=== PATIENT | male | born 1950 | race Caucasian/White ===

== ENCOUNTER 2022-01-21 20:56 | Emergency (ER) | payer MEDICARE, SELFPAY ==
[2022-01-21] MEDS ORDERED: SUCCINYLCHOLINE 20 MG/ML (10 ML) IV ONE (20:57)
[2022-01-21] MEDS ORDERED: RSI MEDICATION KIT IV ONE (21:05)
[2022-01-21] MEDS ORDERED: propofoL 1,000 MG/100 ML VIAL IV ONE (21:06)
[2022-01-21] MEDS ORDERED: METHYLPREDNISOLONE 125 MG INJ ONE (21:20)
[2022-01-21] MEDS ORDERED: ALBUTEROL 2.5 MG/3 ML NEB SOL ONE ×2 (21:20→21:21)
[2022-01-21] MEDS ORDERED: IPRATROPIUM BROM 0.5MG/2.5ML ONE (21:20)
[2022-01-21] MEDS ORDERED: Magnesium Sulfate 2gm IVPB 2 G/50 ML BAG IV ONE (21:20)
[2022-01-21 21:44] LABS: Absolute Lymphocytes (CBC) 7.7 K/uL (0.7-4.9); Hematocrit 43.3 % (39.6-49.0); Lymphocytes % 37.8 % (15.3-44.8); MPV 8.5 fL (7.6-11.3); RBC Red Blood Cell Count 4.68 M/uL (4.33-5.43)
[2022-01-21 21:59] LABS: Protime INR 0.85
[2022-01-21 22:01] LABS: Albumin 3.7 g/dL (3.4-5.0); Bilirubin Total 0.4 mg/dL (0.2-1.0); Potassium 4.9 mmol/L (3.5-5.1); Protein, Total 7.4 g/dL (6.4-8.2); Troponin High Sensitivity 48.8 pg/mL (<58.9)
[2022-01-21] MEDS ORDERED: MIDAZOLAM HCL 2 MG/2 ML INJ ONE ×2 (22:04→23:01)
[2022-01-21 23:10] LABS: Blood Morphology Comment NOT SEEN (NOT SEEN); Platelet Estimate ADEQ
--- NOTE | 2022-01-21 23:29 | RAD REPORT ---
EXAM DESCRIPTION: CT - Head Brain Wo Cont - 01/21/2022 11:21 pm CLINICAL HISTORY: altered mental status COMPARISON: No comparisons TECHNIQUE: All CT scans are performed using dose optimization technique as appropriate and may inclu de automated exposure control or mA/KV adjustment according to patient size. FINDINGS: No intracranial hemorrhage, hydrocephalus or extra-axial fluid collection.No areas of brai n edema or evidence of midline shift. The paranasal sinuses and mastoids are clear. The calvarium is intact. IMPRESSION: No acute intracranial abnormality.
[2022-01-21] MEDS ORDERED: CEFTRIAXONE 1000 MG/VIAL ONE (23:42)
[2022-01-21] MEDS ORDERED: AZITHROMYCIN 500 MG INJ IVPB ONE (23:44)
[2022-01-21] MEDS ORDERED: NA CHLORIDE 0.9% 250 ML ONE (23:44)
--- NOTE | 2022-01-21 23:55 | EDPHYS ---
Physician Documentation [facility] Name: Rodrigo Bustos Sr Age: 71 yrs Sex: Male : 1950 Arrival Date: 01/21/2022 Time: 21:01 Bed 15 Private MD: ED Physician Aroldo Yao HPI: 01/21 21:22 This 71 yrs old Male presents to ER via Unassigned with complaints of Shortness of ms3 breath, altered mental status. 21:22 Onset: The symptoms/episode began/occurred acutely. Duration: The symptoms are ms3 continuous, and are markedly worse than the original presentation. The patient's shortness of breath has no apparent modifying factors. 22:06 71-year-old male presents via [facility] for shortness of breath. EMS states on their ms3 arrival patient was tripoding and patient's mentation decreased during transport. EMS states patient has history of myocardial infarction and COPD. History of present illness limited by patient's mental status and no family or friends present.. ROS: 22:06 Unable to obtain ROS due to altered mental status. ms3 Exam: 21:03 ECG was reviewed by the Attending Physician. ms3 22:06 Constitutional: The patient appears in obvious distress, severely distressed, obviously ms3 ill, pale, Diaphoretic 22:06 Head/face: 22:06 Chest/axilla: Inspection: no acute changes, Palpation: is normal, no crepitus, no tenderness. 22:06 Cardiovascular: Rate: tachycardic, Rhythm: regular, Pulses: Pulses are 4+ in right radial artery and left radial artery. Heart sounds: normal, JVD: is noted bilaterally. 22:06 Neck: External neck: abrasion(s), cellulitis, crepitus, ecchymosis, JVD present, ms3 Trachea: is midline with no obvious abnormalities. 22:06 Respiratory: severe repiratory distress is noted, Respirations: labored breathing, that is severe, nasal flaring, prolonged exhalation, that is moderate, intercostal retractions, that is severe. 22:06 Abdomen/GI: Inspection: abdomen appears normal, Bowel sounds: normal, Palpation: soft. 22:06 Back: Exam negative for acute changes, ecchymosis injury. 22:06 Skin: Appearance: Color: pink, Temperature: normal temperature, Moisture: diaphoretic. 22:06 Neuro: Orientation: unable to test, the patient is comatose, Mentation: unable to follow commands, somnolent, Cerebellar function: unable to test, Motor: unable to test, Sensation: unable to test, GCS 6. Vital Signs: 20:55 BP 198 / 115; Pulse 138; Resp 19 A; Temp 97.5(R); Pulse Ox 99% on Non-rebreather mask; ag7 Weight 100 kg; Height 6 ft. 1 in. (185.42 cm); 21:23 BP 116 / 71; Pulse 79; Resp 17 A; Pulse Ox 100% on ETT vent; ag7 21:37 BP 85 / 72; Pulse 70; Resp 19 A; Pulse Ox 89% on ETT vent; ag7 21:40 BP 106 / 64 LA Supine (auto/reg); Pulse 77 MON; Resp 18 A; Pulse Ox 94% on ETT vent; ag7 21:54 BP 116 / 97; Pulse 66; Resp 22 A; Pulse Ox 100% on ETT vent; ag7 22:06 BP 98 / 56; Pulse 66; Resp 14 A; Pulse Ox 83% on ETT vent; ag7 22:21 BP 102 / 52; Pulse 64; Resp 22 A; Pulse Ox 100% on ETT vent; ag7 22:33 BP 121 / 60; Pulse 61; Resp 22 A; Pulse Ox 100% on ETT vent; ag7 22:48 BP 120 / 63; Pulse 59; Resp 22 A; Pulse Ox 100% on ETT vent; ag7 23:00 BP 121 / 64; Pulse 61; Resp 22 A; Pulse Ox 100% on ETT vent; ag7 23:21 BP 137 / 62; Pulse 65; Resp 21 A; Pulse Ox 100% on ETT vent; ag7 23:36 BP 128 / 76; Pulse 63; Resp 20 A; Pulse Ox 100% on ETT vent; ag7 01/22 00:00 BP 151 / 69; Pulse 68; Resp 20 A; Pulse Ox 100% on ETT vent; ag7 00:30 BP 138 / 70; Pulse 68; Resp 20 A; Pulse Ox 100% on ETT vent; ag7 01:00 BP 118 / 65; Pulse 66; Resp 20 A; Pulse Ox 100% on ETT vent; ag7 01:34 BP 119 / 63; Pulse 57; Resp 18 A; Pulse Ox 100% on ETT vent; ag7 01/21 20:55 Body Mass Index 29.09 (100.00 kg, 185.42 cm) ag7 MDM: 01/21 21:13 Patient medically screened. ms3 22:47 ED course: Patient CXR consistent with CHF exacerbation. Will give emperic antibiotics. ms3 No acute bacterial source of infection seen at this time.. 01/22 07:26 Differential diagnosis: asthma, Bronchitis CHF exacerbation, Chronic Obstructive ms3 Pulmonary Disease Myocardial Infarction pneumonia, pulmonary edema, Unstable Angina. Data reviewed: vital signs, nurses notes, lab test result(s), EKG, radiologic studies. Counseling: I had a detailed discussion with the patient and/or guardian regarding:. 01/21 21:20 Order name: Blood Culture Adult (2) ms3 01/21 21:20 Order name: CBC with Diff; Complete Time: 23:33 ms3 01/21 21:20 Order name: CMP; Complete Time: 22:14 ms3 01/21 21:20 Order name: Lactate; Complete Time: 22:14 ms3 01/21 21:20 Order name: Protime (+inr); Complete Time: 22:00 ms3 01/21 21:20 Order name: Ptt, Activated; Complete Time: 22:00 ms3 01/21 21:20 Order name: ABG; Complete Time: 01:00 ms3 01/21 21:20 Order name: Basic Metabolic Panel ms3 01/21 21:20 Order name: CBC with Diff ms3 01/21 21:20 Order name: NT PRO-BNP; Complete Time: 22:14 ms3 01/21 21:20 Order name: Troponin HS; Complete Time: 22:14 ms3 01/21 22:01 Order name: Manual Differential; Complete Time: 23:33 EDMS 01/21 21:20 Order name: Chest Single View XRAY ms3 01/21 21:20 Order name: EKG; Complete Time: 21:21 ms3 01/21 21:20 Order name: CT Head Brain wo Cont; Complete Time: 23:33 ms3 01/21 22:27 Order name: COVID-19 SARS RT PCR (Document "Date of Onset" if Symptomatic); Complete tw5 Time: 01:01/22 00:57 Order name: Lactate Sepsis 2 HR Follow-up; Complete Time: 01:00 EDMS 01/22 01:13 Order name: ABG ms3 01/21 21:20 Order name: Accucheck ms3 01/21 21:20 Order name: Cardiac monitoring ms3 01/21 21:20 Order name: EKG - Nurse/Tech ms3 01/21 21:20 Order name: IV Saline Lock - Large Bore ms3 01/21 21:20 Order name: Labs collected and sent ms3 01/21 21:20 Order name: O2 Per Protocol ms3 01/21 21:20 Order name: O2 Sat Monitoring ms3 01/21 21:20 Order name: Urine Dipstick-Ancillary (obtain specimen) ms3 01/21 21:20 Order name: IV Saline Lock ms3 01/21 22:50 Order name: Restraint:Non-Violent; Complete Time: 22:50 ms3 EC/14 21:03 Rate is 115 beats/min. Rhythm is regular. Left axis deviation noted. QRS interval is ms3 prolonged at 146 msec. Clinical impression: Abnormal EKG without significant change. Interpreted by me. Administered Medications: 21:09 Drug: Propofol 5 mcg/kg/min Route: IV; Rate: calculated rate; Site: right hand; ag7 21:10 Drug: Succinylcholine 100 mg Route: IVP; Site: right hand; ag7 21:40 Follow up: Response: No adverse reaction ag7 21:20 Drug: Albuterol - atroVENT (ipratropium) (3:1) (2.5 mg - 0.5 mg) 3 ml Route: Nebulizer; ag7 21:20 Drug: Magnesium Sulfate 2 grams Route: IVPB; Infused Over: 2 hrs; Site: left hand; ag7 22:20 Follow up: IV Status: Completed infusion; IV Intake: 50ml ag7 21:20 Drug: SOLU-Medrol (methylPrednisoLONE) 125 mg Route: IVP; Site: left hand; ag7 22:03 Drug: Midazolam 4 mg Route: IVP; Site: right antecubital; ag7 22:56 Drug: Midazolam 2 mg Route: IVP; Site: left wrist; tw5 23:30 Follow up: Response: No adverse reaction ag7 23:50 Drug: AZITHromycin 500 mg Route: IVPB; Infused Over: 1 hrs; Site: left hand; ag7 01/22 01:11 Follow up: IV Status: Completed infusion; IV Intake: 250ml ag7 01/21 23:56 Drug: Rocephin (cefTRIAXone) 1 grams Route: IV; Rate: calculated rate; Site: left hand; ag7 01/22 00:30 Follow up: Response: No adverse reaction ag7 00:04 Drug: Lasix (furosemide) 40 mg Route: IVP; Site: left hand; ag7 00:34 Follow up: Response: No adverse reaction ag7 Point of Care Testing: Blood Glucose: 01/21 20:55 Blood Glucose: 218 mg/dL; ag7 Ranges: Critical Glucose Levels:Adult <50 mg/dl or >400 mg/dl <40 mg/dl or >180 mg/dl Disposition: 01/22 07:26 Critical Care:. ms3 Disposition Summary: 01/21/22 23:54 Transfer Ordered Transfer Location: [facility] ms3 Reason: Higher level of care ms3 Condition: Critical ms3 Problem: new ms3 Symptoms: have improved ms3 Accepting Physician: .(01/22/22 02:25) ag7 Diagnosis - Acute respiratory failure ms3 - congestive heart failure ms3 - COPD exacerbation ms3 - Acidosis ms3 - Hypercapnea ms3 Forms: - Medication Reconciliation Form ms3 - SBAR form ms3 Critical care time excluding procedures: 07:26 Critical care time: Bedside Care: 50 minutes, Consultation: 10 minutes. Total time: 60 ms3 minutes Signatures: Dispatcher [employer] EDMS Winston Samuels, RIO HARDWARE ENGINEER-Lily1 Aroldo Yao DO DO ms3 Carol Zapata tw5 Merry Soni RN RN ag7 Corrections: (The following items were deleted from the chart) 02:25 01/21 23:54 . ms3 ag7
--- NOTE | 2022-01-21 23:55 | ER ---
Nurse's Notes [facility] Name: Rodrigo Bustos Sr Age: 71 yrs Sex: Male : 1950 Arrival Date: 01/21/2022 Time: 21:01 Bed 15 Private MD: Diagnosis: Acute respiratory failure;congestive heart failure;COPD exacerbation;Acidosis;Hypercapnea Presentation: 01/21 20:55 Chief complaint: EMS states: EMS report, called to patient home, patient unresponsive. ag7 Coronavirus screen: At this time, unable to obtain information related to travel outside the [place] Client presents with at least one sign or symptom that may indicate coronavirus-19. Standard/surgical mask placed on the client. Ebola Screen: Patient negative for fever greater than or equal to 101.5 degrees Fahrenheit, and additional compatible Ebola Virus Disease symptoms Patient denies exposure to infectious person. Initial Sepsis Screen: Does the patient meet any 2 criteria? RR > 20 per min. Temp <36.0*C (96.8*F)) or > 38.3*C (100.9*F). Altered Mental Status. HR > 90 bpm. Yes Does the patient have a suspected source of infection? Yes: Productive cough/pneumonia Other: rhonchi, wheezing bilateral. Risk Assessment: Do you want to hurt yourself or someone else? Unable to obtain. Onset of symptoms was January 21, 2022. Care prior to arrival: non rebreather. 20:55 Method Of Arrival: EMS: [facility] ag7 20:55 Acuity: YURI 1 ag7 Triage Assessment: 20:55 General: Appears distressed, Behavior is unresponsive. Neuro: Level of Consciousness is ag7 unresponsive. Cardiovascular: Heart tones S1 S2 present. Respiratory: Airway is compromised Trachea midline Respiratory effort is labored, Respiratory pattern is regular, symmetrical, Ventilator assessment: Breath sounds are coarse Breath sounds with rhonchi bilaterally. Breath sounds with wheezes bilaterally. Screenin/15 01:25 Fall Risk No fall in past 12 months (0 pts). No secondary diagnosis (0 pts). IV access ag7 (20 points). Ambulatory Aid- None/Bed Rest/Nurse Assist (0 pts). Gait- Weak (10 pts.). Mental Status- Overestimates/Forgets Limitations (15 pts.). Total Mccarthy Fall Scale indicates High Risk Score (45 or more points). Fall prevention measures have been instituted. Side Rails Up X 2 Placed Close to Nursing Station 1:1 Attendant Assigned Frequent Obs/Assessments Occuring. Assessment: 01/21 21:00 Reassessment: Lab draw with IV start to the right forearm. ag7 21:03 Reassessment: prep intubation 2108 Propofol 100 mg IVP 2116 continuous propofol 20 ag7 mcg/kg/min 2125 Propofol increased 25 mcg/kg/min RASS 2 2129 propofol bolus 10 mg/min 2132 Propofol increased 30 mcg/kg/min 2135 Propofol 10 mg/min bolus 2141 ABG 2202 Versed 2 mg IVP 2248 increased Propofol 35 mcg/kg/min. 21:05 General: see triage. ag7 01/22 02:03 Reassessment: Report called to Gertrude DELGADO [phone] [facility]. ag7 02:04 Reassessment: ventilator settings Peep 1.0, TV 380, RR 18, FI02 75%. ag7 02:15 Reassessment: No changes from previously documented assessment. ag7 02:16 Reassessment: LIFEFLIGHT AT THE BEDSIDE. ag7 Vital Signs: 01/21 20:55 BP 198 / 115; Pulse 138; Resp 19 A; Temp 97.5(R); Pulse Ox 99% on Non-rebreather mask; ag7 Weight 100 kg; Height 6 ft. 1 in. (185.42 cm); 21:23 BP 116 / 71; Pulse 79; Resp 17 A; Pulse Ox 100% on ETT vent; ag7 21:37 BP 85 / 72; Pulse 70; Resp 19 A; Pulse Ox 89% on ETT vent; ag7 21:40 BP 106 / 64 LA Supine (auto/reg); Pulse 77 MON; Resp 18 A; Pulse Ox 94% on ETT vent; ag7 21:54 BP 116 / 97; Pulse 66; Resp 22 A; Pulse Ox 100% on ETT vent; ag7 22:06 BP 98 / 56; Pulse 66; Resp 14 A; Pulse Ox 83% on ETT vent; ag7 22:21 BP 102 / 52; Pulse 64; Resp 22 A; Pulse Ox 100% on ETT vent; ag7 22:33 BP 121 / 60; Pulse 61; Resp 22 A; Pulse Ox 100% on ETT vent; ag7 22:48 BP 120 / 63; Pulse 59; Resp 22 A; Pulse Ox 100% on ETT vent; ag7 23:00 BP 121 / 64; Pulse 61; Resp 22 A; Pulse Ox 100% on ETT vent; ag7 23:21 BP 137 / 62; Pulse 65; Resp 21 A; Pulse Ox 100% on ETT vent; ag7 23:36 BP 128 / 76; Pulse 63; Resp 20 A; Pulse Ox 100% on ETT vent; ag7 01/22 00:00 BP 151 / 69; Pulse 68; Resp 20 A; Pulse Ox 100% on ETT vent; ag7 00:30 BP 138 / 70; Pulse 68; Resp 20 A; Pulse Ox 100% on ETT vent; ag7 01:00 BP 118 / 65; Pulse 66; Resp 20 A; Pulse Ox 100% on ETT vent; ag7 01:34 BP 119 / 63; Pulse 57; Resp 18 A; Pulse Ox 100% on ETT vent; ag7 01/21 20:55 Body Mass Index 29.09 (100.00 kg, 185.42 cm) ag7 ED Course: 01/21 21:00 Inserted saline lock: 18 gauge in right hand, using aseptic technique. ag7 21:01 Patient arrived in ED. ds4 21:05 EKG completed in triage. Results shown to . ag7 21:09 Inserted saline lock: 20 gauge in left hand, using aseptic technique. ag7 21:10 Assisted provider with intubation using 7.5 mm ETT via oral route. ET tube secured at ag7 lips. 23\\T\\lip. Assist ventilation with ventilator. 21:13 Aroldo Yao DO is Attending Physician. ms3 21:17 f/c insertion 16 ukrainian. ag7 21:17 Placed. Thermoregulation: warm blanket given to patient. ag7 21:17 Castro cath inserted, using sterile technique, 16 Fr., by me, balloon inflated, to tw5 gravity drainage, returned clear yellow urine. Patient tolerated well. 21:47 Merry Soni, RN is Primary Nurse. ag7 21:53 Triage completed. ag7 22:25 Chest Single View XRAY In Process Unspecified. EDMS 23:23 CT Head Brain wo Cont In Process Unspecified. EDMS 23:50 NGT: inserted 16 Fr. via left nare. verified return of gastric contents, Patient ag7 tolerated well. 23:55 COVID-19 SARS RT PCR (Document "Date of Onset" if Symptomatic) Sent. ag7 01/22 01:24 Patient has correct armband on for positive identification. Bed in low position. Call ag7 light in reach. Side rails up X2. 02:17 Patient transferred, IV remains in place. ag7 Administered Medications: 01/21 21:09 Drug: Propofol 5 mcg/kg/min Route: IV; Rate: calculated rate; Site: right hand; ag7 21:10 Drug: Succinylcholine 100 mg Route: IVP; Site: right hand; ag7 21:40 Follow up: Response: No adverse reaction ag7 21:20 Drug: Albuterol - atroVENT (ipratropium) (3:1) (2.5 mg - 0.5 mg) 3 ml Route: Nebulizer; ag7 21:20 Drug: Magnesium Sulfate 2 grams Route: IVPB; Infused Over: 2 hrs; Site: left hand; ag7 22:20 Follow up: IV Status: Completed infusion; IV Intake: 50ml ag7 21:20 Drug: SOLU-Medrol (methylPrednisoLONE) 125 mg Route: IVP; Site: left hand; ag7 22:03 Drug: Midazolam 4 mg Route: IVP; Site: right antecubital; ag7 22:56 Drug: Midazolam 2 mg Route: IVP; Site: left wrist; tw5 23:30 Follow up: Response: No adverse reaction ag7 23:50 Drug: AZITHromycin 500 mg Route: IVPB; Infused Over: 1 hrs; Site: left hand; ag7 01/22 01:11 Follow up: IV Status: Completed infusion; IV Intake: 250ml ag7 01/21 23:56 Drug: Rocephin (cefTRIAXone) 1 grams Route: IV; Rate: calculated rate; Site: left hand; ag7 01/22 00:30 Follow up: Response: No adverse reaction ag7 00:04 Drug: Lasix (furosemide) 40 mg Route: IVP; Site: left hand; ag7 00:34 Follow up: Response: No adverse reaction ag7 Medication: 01:24 VIS not applicable for this client. 7 Point of Care Testing: Blood Glucose: 01/21 20:55 Blood Glucose: 218 mg/dL; ag7 Ranges: Intake: 22:20 IV: 50ml; Total: 50ml. ag7 01/22 01:11 IV: 250ml; Total: 300ml. ag7 Outcome: 01/21 23:54 ER care complete, transfer ordered by . ms3 01/22 02:16 Transferred by helicopter X-rays sent w/ patient. ag7 02:17 critical ag7 02:25 Patient left the ED. ag7 Signatures: Dispatcher [employer] EDMS Magdy Maldonado ds4 Aroldo Yao DO DO ms3 Craol Zapata tw5 Merry Soni, RN RN ag7 Corrections: (The following items were deleted from the chart) 01/21 21:57 21:56 Propofol 5 mcg/kg/min IV at calculated rate in right hand ag7 ag7
[2022-01-22] MEDS ORDERED: FUROSEMIDE 40 MG/4 ML VIAL ONE (00:03)
[2022-01-22 00:07] LABS: Arterial Blood Carboxyhemoglob 5.1 % (0-1.5); Blood O2 Saturation 99.4 % (92-98.5)
[2022-01-22] MEDS ORDERED: propofoL 1,000 MG/100 ML VIAL IV ONE (01:08)
[2022-01-22 01:57] LABS: Arterial Blood Carboxyhemoglob 2.5 % (0-1.5); Blood Gas Oxyhemoglobin 95.7 % (94-97); Blood O2 Saturation 99.5 % (92-98.5)
[2022-01-22 03:11] VITALS: O2SAT 100
[2022-01-22 03:25] VITALS: BP 119/63
--- NOTE | 2022-01-22 14:45 | EKG ---
Test Date: 2022-01-21 Test Time: 21:03:52 Netting Inspector: MEASUREMENT RESULTS: Intervals: Rate: 115 CA: 152 QRSD: 146 QT: 354 QTc: 489 [place]: P: 76 CA: 152 QRS: -17 T: 128 INTERPRETIVE STATEMENTS: Sinus tachycardia Left ventricular hypertrophy with QRS widening and repolarization abnormality Abnormal ECG No previous ECG available for comparison Electronically Signed On 01-22-22 14:45:10 CDT by Osmar Marinelli
--- NOTE | 2022-01-23 09:51 | RAD REPORT ---
EXAM DESCRIPTION: RAD - Chest Single View - 01/21/2022 10:23 pm CLINICAL HISTORY: 71 years Male, COPD TECHNIQUE: 1 view (Single frontal view of the chest) COMPARISON: None FINDINGS: Limited exam secondary to moderate rightward patient rotation. LINES AND TUBES: ET tube is 5.5 cm above the drea. Nasogastric tube extending into the stomach bey ond the projection of this exam. CARDIOVASCULAR STRUCTURES: pper limits of normal heart size. No pulmonary venous congestion. LUNGS: Right lower lobe and right midlung opacities. Left lung is clear. PLEURA: Small right pleural effusion. No pneumothorax. BONES: No acute osseous abnormality of the thorax. IMPRESSION: 1. Right lower lobe and right midlung opacities compatible with atelectasis and/or inf ection. 2. Small right pleural effusion. 3. ET tube 5.5 cm above drea. Electronically signed by: Rodrigo Ingram MD 01/21/2022 11:19 PM CDT Due to temporary technical issues with the PACS/Fluency reporting system, reports are being signed by the in house radiologist without review as a courtesy to ensure prompt reporting. The interpreting r adiologist is fully responsible for the content of the report.
== END 2022-01-22 02:25 | disposition short-term general hospital (02) ==
LOC: ER 20:56 → EDBD 20:56 → ER 01-22 02:25
DX: J96.02 Acute respiratory failure with hypercapnia (principal); J44.1 Chronic obstructive pulmonary disease with (acute) exacerbation; E87.2 Acidosis; I50.9 Heart failure, unspecified; I25.2 Old myocardial infarction; Z78.1 Physical restraint status; Z20.822 Contact with and (suspected) exposure to COVID-19
CPT/HCPCS: 93005; 87040; 85025; 36415; 87205; 85610; 83605 ×2; 85730; 84484; 80053; 83880; 70450; 71045; 94002; 94640; 82805 ×2; 31500; 51702; 99291; 99292; U0003; J0330; J2704 ×2; J0456; J2250 ×2; J3475; J7050; J2930

== ENCOUNTER 2022-03-12 17:30 | Inpatient (IN) | payer MEDICARE ==
[2022-03-12] MEDS ORDERED: METHYLPREDNISOLONE 125 MG INJ ONE (17:45)
[2022-03-12] MEDS ORDERED: ALBUTEROL 2.5 MG/3 ML NEB SOL ONE (17:45)
[2022-03-12] MEDS ORDERED: IPRATROPIUM BROM 0.5MG/2.5ML ONE (17:45)
[2022-03-12 18:16] LABS: Absolute Lymphocytes (CBC) 2.6 K/uL (0.7-4.9); Hematocrit 44.2 % (39.6-49.0); Lymphocytes % 24.1 % (15.3-44.8); MCV 91.1 fL (80-100); MPV 7.8 fL (7.6-11.3); RBC Red Blood Cell Count 4.85 M/uL (4.33-5.43)
--- NOTE | 2022-03-12 18:33 | RAD REPORT ---
EXAM DESCRIPTION: RAD - Chest Single View - 03/12/2022 5:56 pm CLINICAL HISTORY: SOB COMPARISON: Portable January 21 TECHNIQUE: AP portable chest image was obtained 03/12/2022 5:56 pm . FINDINGS: No focal mass or consolidation. Chronic interstitial opacities are present most notable in the lower right lung field. Right costophrenic angle blunting has not changed. No new hilar mass or lymphadenopathy. Heart and vasculature are normal. No pneumothorax or enlarging pleural effusion. No acute bony abnormality seen. No acute aortic findings suspected. IMPRESSION: No acute cardiopulmonary process. Chronic pleural and parenchymal findings are present similar to January 21 imaging.
[2022-03-12 18:35] LABS: Albumin 3.2 g/dL (3.4-5.0); Bilirubin Total 0.4 mg/dL (0.2-1.0); Potassium 5.3 mmol/L (3.5-5.1); Protein, Total 7.5 g/dL (6.4-8.2); Troponin High Sensitivity 30.5 pg/mL (<58.9)
--- NOTE | 2022-03-12 19:09 | ER ---
Nurse's Notes [facility] Name: Rodrigo Bustos Sr Age: 71 yrs Sex: Male : 1950 Arrival Date: 03/12/2022 Time: 17:32 Bed 17 Private MD: Diagnosis: COPD/ Chronic obstructive pulmonary disease with (acute) exacerbation;EKG changes Presentation: 03/12 17:39 Chief complaint: Patient states: I started feeling very short of breath this morning. jb4 It has not gotten any better throughout the day. Coronavirus screen: Client presents with at least one sign or symptom that may indicate coronavirus-19. Provider contacted for isolation considerations. Ebola Screen: No symptoms or risks identified at this time. Initial Sepsis Screen: Does the patient meet any 2 criteria? No. Patient's initial sepsis screen is negative. Does the patient have a suspected source of infection? No. Patient's initial sepsis screen is negative. Risk Assessment: Do you want to hurt yourself or someone else? Patient reports no desire to harm self or others. Onset of symptoms was March 12, 2022. Transition of care: patient was not received from another setting of care. 17:39 Method Of Arrival: Wheelchair jb4 17:39 Acuity: YURI 3 jb4 Triage Assessment: 17:41 General: Appears in no apparent distress. uncomfortable, Behavior is calm, cooperative. jb4 Pain: Denies pain. Respiratory: Reports shortness of breath at rest on exertion Onset: The symptoms/episode began/occurred this morning, the patient has mild shortness of breath. Historical: - Allergies: 17:41 No Known Allergies; jb4 - PMHx: 17:41 COPD; MO; HTN; jb4 - PSHx: 17:41 Heart Stent; jb4 - Immunization history:: Adult Immunizations not up to date. - Social history:: Smoking status: Patient reports the use of cigarette tobacco products, smokes one pack cigarettes per day. Screenin:41 Abuse screen: Denies threats or abuse. Nutritional screening: No deficits noted. ll1 Tuberculosis screening: No symptoms or risk factors identified. Fall Risk IV access (20 points). Total Mccarthy Fall Scale indicates No Risk (0-24 pts). Assessment: 18:27 Reassessment: Patient states feeling better. Patient states symptoms have improved. kr3 Cardiovascular: Rhythm is regular. Respiratory: Airway is patent Trachea midline Respiratory effort is labored, Respiratory pattern is regular, symmetrical, Breath sounds with wheezes bilaterally. 19:24 Reassessment: Patient and/or family updated on plan of care and expected duration. Pain vc1 level reassessed. Patient is alert, oriented x 3, equal unlabored respirations, skin warm/dry/pink. Patient states symptoms have improved. Respiratory: Airway is patent Respiratory effort is even, unlabored, Respiratory pattern is regular, symmetrical. 20:52 Reassessment: Patient and/or family updated on plan of care and expected duration. Pain vc1 level reassessed. Patient is alert, oriented x 3, equal unlabored respirations, skin warm/dry/pink. Patient states feeling better. Patient states symptoms have improved. 21:22 Reassessment: Waiting on room upstairs. vc1 Vital Signs: 17:39 BP 158 / 73; Pulse 75; Resp 20; Temp 98.5(O); Pulse Ox 94% on R/A; Weight 79.38 kg (R); jb4 Height 6 ft. 0 in. (182.88 cm) (R); Pain 0/10; 18:29 BP 117 / 64; Pulse 72; Resp 20; Pulse Ox 94% on R/A; kr3 19:24 BP 142 / 69; Pulse 72; Resp 20; Pulse Ox 93% ; vc1 20:52 BP 116 / 64; Pulse 73; Resp 20; Pulse Ox 93% ; vc1 17:39 Body Mass Index 23.73 (79.38 kg, 182.88 cm) jb4 ED Course: 17:32 Patient arrived in ED. rg4 17:32 Elham Dejesus PA is PHCP. en 17:32 Eduardo Diaz MD is Attending Physician. en 17:33 Dori Payne, DANNY is Primary Nurse. ll1 17:33 Arm band placed on Patient placed in an exam room, on a stretcher. ll1 17:41 Triage completed. jb4 17:58 CXR XRAY In Process Unspecified. EDMS 18:22 SARS-COV-2 RT PCR (Document "Date of Onset" if Symptomatic) Sent. kr3 18:24 Missed attempt(s): 20 gauge in right forearm. kr3 18:26 Inserted saline lock: 20 gauge in left antecubital area, using aseptic technique. Blood kr3 collected. 18:41 Patient has correct armband on for positive identification. Bed in low position. Call 1 light in reach. Pulse ox on. NIBP on. 19:07 Thanh Blue MD is Hospitalizing Provider. en 22:15 No provider procedures requiring assistance completed. Patient admitted, IV remains in vc1 place. Administered Medications: 18:05 Drug: Albuterol - atroVENT (ipratropium) (3:1) (2.5 mg - 0.5 mg) 3 ml Route: Nebulizer; kr3 18:27 Follow up: Response: No adverse reaction kr3 18:20 Drug: SOLU-Medrol (methylPrednisoLONE) 125 mg Route: IVP; Site: left antecubital; kr3 18:40 Follow up: Response: No adverse reaction ll1 Medication: 18:40 VIS not applicable for this client. ll1 Outcome: 19:08 Decision to Hospitalize by Provider. en 22:00 Admitted to Med/surg accompanied by tech, via wheelchair, with chart, Report called to sonido Boss RN 22:00 Condition: good 22:00 Instructed on the need for admit. 22:16 Patient left the ED. [facility] Signatures: Dispatcher [employer] EDMS Juju Dumont rg4 Scott Pugh RN RN jb4 Dori Payne RN RN ll1 Jennifer Garcia RN RN vc1 Elahm Dejesus PA PA en Reid, Kelley RN RN kr3
--- NOTE | 2022-03-12 19:09 | EDPHYS ---
Physician Documentation [facility] – [place], [place] Name: Rodrigo Bustos Sr Age: 71 yrs Sex: Male : 1950 Arrival Date: 03/12/2022 Time: 17:32 Bed 17 Private MD: ED Physician Eduardo Diaz HPI: 03/12 18:50 This 71 yrs old Male presents to ER via Wheelchair with complaints of Breathing en Difficulty. 18:50 71-year-old male with history of COPD presents to ED with increased work of breathing en today. Patient reports wheezing, no improvement with inhalers. He is not on home O2. He reports chest tightness without pain. No peripheral edema. Is a chronic cough which is slightly worse without fevers or chills.. Historical: - Allergies: 17:41 No Known Allergies; jb4 - PMHx: 17:41 COPD; GA; HTN; jb4 - PSHx: 17:41 Heart Stent; jb4 - Immunization history:: Adult Immunizations not up to date. - Social history:: Smoking status: Patient reports the use of cigarette tobacco products, smokes one pack cigarettes per day. ROS: 18:50 Constitutional: Negative for fever, chills, and weight loss. en 18:50 Constitutional: Negative for body aches, chills, fatigue, fever. 18:50 Cardiovascular: Negative for chest pain, edema, orthopnea, palpitations. 18:50 Respiratory: Positive for cough, shortness of breath, wheezing. 18:50 Abdomen/GI: Negative for abdominal pain, nausea and vomiting. 18:50 All other systems are negative. Exam: 18:50 Constitutional: This is a well developed, well nourished patient who is awake, alert, en and in no acute distress. 18:50 Constitutional: Well-developed, well-hydrated, visibly uncomfortable in moderate respiratory distress. 18:50 Eyes: Conjunctiva: normal, no exudate, no injection. 18:50 Neck: ROM/movement: is normal, is supple. 18:50 Cardiovascular: Rate: normal, Rhythm: regular, Pulses: no pulse deficits are appreciated, Heart sounds: normal, no murmur, no rub, no gallop. 18:50 Respiratory: moderate respiratory distress is noted, Respirations: labored breathing, accessory muscle usage, shallow respirations, that is moderate, splinting, tachypnea, that is mild. 18:50 Respiratory: Breath sounds: wheezin:50 Abdomen/GI: Inspection: abdomen appears normal, Bowel sounds: normal, Palpation: abdomen is soft and non-tender, in all quadrants. Vital Signs: 17:39 BP 158 / 73; Pulse 75; Resp 20; Temp 98.5(O); Pulse Ox 94% on R/A; Weight 79.38 kg (R); jb4 Height 6 ft. 0 in. (182.88 cm) (R); Pain 0/10; 18:29 BP 117 / 64; Pulse 72; Resp 20; Pulse Ox 94% on R/A; kr3 19:24 BP 142 / 69; Pulse 72; Resp 20; Pulse Ox 93% ; vc1 20:52 BP 116 / 64; Pulse 73; Resp 20; Pulse Ox 93% ; vc1 17:39 Body Mass Index 23.73 (79.38 kg, 182.88 cm) jb4 MDM: 17:37 Patient medically screened. en 18:58 Differential diagnosis: PNA, COPD exacberation, COVID, URI, ACS, CHF. Data reviewed: en vital signs, nurses notes, old medical records, lab test result(s), EKG, radiologic studies, and as a result, I will will give duonebs, solumedrol pending Imaging and labs. ED course: Ekg NSR at 68 with inverted t-waves in II,III aVF, V4-V6 more prominent than in 01/2022. WOB improved but still with diffuse wheezing and poor air movement. NO hypoxia. Will admit for COPD exacerbation and EKG changes. . 19:13 ED course: accepted by Dr Blue. en 03/12 17:38 Order name: CBC with Diff; Complete Time: 18:58 03/12 17:38 Order name: CMP; Complete Time: 18:55 03/12 18:55 Interpretation: Abnormal. en 03/12 17:38 Order name: CXR XRAY; Complete Time: 18:58 03/12 17:38 Order name: Troponin High Sensitivity; Complete Time: 18:58 03/12 17:38 Order name: COVID-19 SARS RT PCR (Document "Date of Onset" if Symptomatic) en 07/03 17:38 Order name: SARS-COV-2 RT PCR (Document "Date of Onset" if Symptomatic) eb 03/12 17:38 Order name: Saline Lock; Complete Time: 18:36 en 03/12 17:38 Order name: EKG - Nurse/Tech; Complete Time: 18:36 en 03/12 21:37 Order name: EKG; Complete Time: 21:37 bb Administered Medications: 18:05 Drug: Albuterol - atroVENT (ipratropium) (3:1) (2.5 mg - 0.5 mg) 3 ml Route: Nebulizer; kr3 18:27 Follow up: Response: No adverse reaction kr3 18:20 Drug: SOLU-Medrol (methylPrednisoLONE) 125 mg Route: IVP; Site: left antecubital; kr3 18:40 Follow up: Response: No adverse reaction ll1 Disposition: 03/13 09:54 Co-signature as Attending Physician, Eduardo Diaz MD I agree with the assessment and kdr plan of care. Disposition Summary: 03/12/22 19:08 Hospitalization Ordered Hospitalization Status: Inpatient Admission en Provider: Thanh Blue Location: Telemetry/MedSurg (Inpatient) en Condition: Fair en Problem: an acute exacerbation en Symptoms: are unchanged en Bed/Room Type: Standard en Room Assignment: 228(03/12/22 21:03) bb Diagnosis - COPD/ Chronic obstructive pulmonary disease with (acute) exacerbation en - EKG changes en Forms: - Medication Reconciliation Form en - SBAR form en Signatures: Dispatcher [employer] EDFL Patti Alvarez RN RN mw Rittger, Kevin, MD MD kdr Ballard, Brenda, RN RN Scott Beltran RN RN [email or web address] Elham Dejesus PA PA en Reid, Kelley, RN RN conrad3 Dori Payne RN ll1 Corrections: (The following items were deleted from the chart) 03/12 20:07 19:08 en 21:03 20:07 405 mw sam
[2022-03-12] MEDS ORDERED: ONDANSETRON 4 MG/2 ML VIAL IV PRN (22:30)
[2022-03-12 23:20] VITALS: BMI 23.7
[2022-03-13] MEDS: ALBUTEROL 2.5 MG/3 ML NEB SOL NEB SCH ×5 (00:31→09:45)
[2022-03-13] MEDS: IPRATROPIUM BROM 0.5MG/2.5ML NEB SCH ×5 (00:31→09:45)
[2022-03-13] MEDS: METHYLPREDNISOLONE 40 MG INJ IV SCH ×3 (01:16→17:00)
[2022-03-13 03:44] LABS: Absolute Lymphocytes (CBC) 1.4 K/uL (0.7-4.9); Hematocrit 38.4 % (39.6-49.0); Lymphocytes % 20.7 % (15.3-44.8); MCV 90.6 fL (80-100); MPV 7.6 fL (7.6-11.3); RBC Red Blood Cell Count 4.23 M/uL (4.33-5.43)
[2022-03-13 04:10] LABS: Potassium 5.3 mmol/L (3.5-5.1); Troponin High Sensitivity 22.2 pg/mL (<58.9)
[2022-03-13] MEDS: ASPIRIN EC 81 MG TAB PO SCH (10:00)
--- NOTE | 2022-03-13 10:38 | P.HP ---
Certification for Inpatient Patient admitted to: Inpatient With expected LOS: >2 Midnights Patient will require the following post-hospital care: None Practitioner: I am a practitioner with admitting privileges, knowledge of patient current condition, hospital course, and medical plan of care. Services: Services provided to patient in accordance with Admission requirements found in Title 42 Section 412.3 of the Code of Federal Regulations Patient History Date of Service: 03/13/22 Primary Care Provider: oliva Reason for admission: copd exacerbation History of Present Illness: Patient is an office patient of [employer]. he suffers from copd, chf and ckd. He was getting sob yesterday morning. Denies any contact with fumes or upper respiratory tract symptoms. The patient was worsening and came to the ER. Found to be in the high 80's to low 90% on his pulse oximeter. With some EKG changes. He was admitted for steroids and breathing treaments. He is doing better this morning. The troponins are negative. He is feeling much better. Allergies No Known Allergies Allergy (Verified 03/12/22 23:31) - Past Medical/Surgical History Has patient received pneumonia vaccine in the past: No Diabetic: No -: COPD -: HTN -: Heart stent - Family History Father -: Heart disease, Stroke Mother -: Heart disease, Cancer - Social History Smoking Status: Current every day smoker Caffeine use: Yes Place of Residence: Home Review of Systems 10-point ROS is otherwise unremarkable Respiratory: SOB with Excertion Physical Examination - Vital Signs Temperature: 96.8 F Blood Pressure: 132/63 Pulse: 60 Respirations: 18 Pulse Ox (%): 95 - Physical Exam General: Alert, In no apparent distress HEENT: Atraumatic, PERRLA, Mucous membr. moist/pink, EOMI, Sclerae nonicteric Neck: Supple, 2+ carotid pulse no bruit, No LAD, Without JVD or thyroid abnormality Respiratory: Clear to auscultation bilaterally, Diminished Cardiovascular: Regular rate/rhythm, Normal S1 S2 Gastrointestinal: Normal bowel sounds, No tenderness Musculoskeletal: No tenderness Integumentary: No rashes Neurological: Normal gait, Normal speech, Normal strength at 5/5 x4 extr, Normal tone, Normal affect Lymphatics: No axilla or inguinal lymphadenopathy - Studies Laboratory Data (last 24 hrs) 03/12/22 18:05: Sodium 137, Potassium 5.3 H, BUN 44 H, Creatinine 2.29 H, Glucose 109 H, Total Bilirubin 0.4, AST 14 L, ALT 22, Alkaline Phosphatase 92 03/12/22 18:05: WBC 10.8, Hgb 14.7, Hct 44.2, Plt Count 326 Assessment and Plan - Problems (Diagnosis) (1) COPD exacerbation Current Visit: Yes Status: Acute Plan: will continue him on steroids and levalbuterol. Will monitor him for the day. (2) CHF (congestive heart failure) Current Visit: Yes Status: Acute Plan: check an echocardiogram on the patient. He is on lisinopril, carvedilol and lasix as an outpatient. The patient kidney function in worsening. Would like to switch him to entresto. This will improve mortality and is better for renal function. Qualifiers: Heart failure type: systolic Heart failure chronicity: chronic Qualified Code(s): I50.22 - Chronic systolic (congestive) heart failure (3) CKD (chronic kidney disease) stage 3, GFR 30-59 ml/min Current Visit: Yes Status: Chronic Plan: Mild worsening. Will give gentle fluids. Hold the lasix in favor of entresto as stated above Qualifiers: Chronic kidney disease stage 3 subtype: stage 3b (GFR 30-44) Qualified Code(s): N18.32 - Chronic kidney disease, stage 3b (4) HTN (hypertension) Current Visit: Yes Status: Acute Plan: will restart the carvedilol and start him on entresto instead of the lisinopril. If the patient is not well controlled we can start him on amlodipine. Which he is on as an outpatient. Qualifiers: Hypertension type: primary hypertension Qualified Code(s): I10 - Essential (primary) hypertension Discharge Plan: Home Plan to discharge in: 24 Hours - Advance Directives Does patient have a Living Will: No Does patient have a Durable POA for Healthcare: No - Code Status/Comfort Care Code Status Assessed: Yes Code Status: Full Code Physician Review: Patient Assessed, Agree with Above Assessment and Plan Critical Care: No Time Spent Managing Pts Care (In Minutes): 45
[2022-03-13] MEDS ORDERED: PNEUMOCOCCAL VACCINE 0.5 ML IMVAC ONE (12:00)
[2022-03-13] MEDS: D5 0.45 NS 1,000 ML IV SCH (13:40)
[2022-03-13] MEDS: carvediloL 3.125 MG TAB PO SCH (18:55)
[2022-03-13] MEDS: LEVALBUTEROL 0.63 MG/3 ML NEB NEB PRN (20:00)
[2022-03-13] MEDS: SACUBITRIL/VALSARTAN 24/26 MG TAB PO SCH (20:50)
[2022-03-14] MEDS: METHYLPREDNISOLONE 40 MG INJ IV SCH ×3 (01:21→16:03)
[2022-03-14 05:56] LABS: Hematocrit 37.1 % (39.6-49.0); Lymphocytes % 9.6 % (15.3-44.8); MCV 92.9 fL (80-100); MPV 7.9 fL (7.6-11.3)
[2022-03-14] MEDS: carvediloL 3.125 MG TAB PO SCH ×2 (06:00→17:00)
[2022-03-14 06:23] LABS: Albumin 2.7 g/dL (3.4-5.0); Bilirubin Total 0.2 mg/dL (0.2-1.0); Protein, Total 6.4 g/dL (6.4-8.2); Thyroid Stimulating Hormone 0.084 uIU/mL (0.360-3.740)
[2022-03-14 06:29] LABS: Potassium 5.6 mmol/L (3.5-5.1)
[2022-03-14 06:31] LABS: Blood Morphology Comment NOT SEEN (NOT SEEN); Platelet Estimate ADEQ; White Blood Cell Scan OK (OK)
[2022-03-14] MEDS: D5 0.45 NS 1,000 ML IV SCH ×2 (07:45→20:41)
[2022-03-14] MEDS: SACUBITRIL/VALSARTAN 24/26 MG TAB PO SCH ×2 (07:46→20:41)
[2022-03-14] MEDS: ASPIRIN EC 81 MG TAB PO SCH (07:46)
--- NOTE | 2022-03-14 08:00 | EKG ---
Test Date: 2022-03-12 Test Time: 18:31:03 Chief Chemist: RANDOLPH MEASUREMENT RESULTS: Intervals: Rate: 63 AK: 138 QRSD: 122 QT: 426 QTc: 435 [place]: P: 76 AK: 138 QRS: 10 T: 223 INTERPRETIVE STATEMENTS: Normal sinus rhythm Possible Inferior infarct, age undetermined ST & T wave abnormality, consider lateral ischemia Abnormal ECG Compared to ECG 01/21/2022 21:03:52 Myocardial infarct finding now present ST (T wave) deviation now present Possible ischemia now present Sinus tachycardia no longer present Left ventricular hypertrophy no longer present Early repolarization no longer present Electronically Signed On 03-14-22 07:55:45 CDT by Darryl Mckenna
--- NOTE | 2022-03-14 08:17 | P.PN ---
Subjective Date of Service: 03/14/22 Primary Care Provider: oliva Chief Complaint: copd exacerbation Subjective: No new changes Review of Systems 10-point ROS is otherwise unremarkable Respiratory: SOB with Excertion Physical Examination - Vital Signs Temperature: 97.2 F Blood Pressure: 124/65 Pulse: 62 Respirations: 19 Pulse Ox (%): 99 - Physical Exam General: Alert, In no apparent distress HEENT: Atraumatic, PERRLA, EOMI Neck: Supple, JVD not distended Respiratory: Expiratory wheezes Cardiovascular: Regular rate/rhythm, Normal S1 S2 Gastrointestinal: Normal bowel sounds, No tenderness Musculoskeletal: No tenderness Integumentary: No rashes Neurological: Normal speech, Normal tone, Normal affect Lymphatics: No axilla or inguinal lymphadenopathy Assessment And Plan - Current Problems (Diagnosis) (1) COPD exacerbation Current Visit: Yes Status: Acute Plan: will continue him on steroids and levalbuterol. Will monitor him for the day. will keep him for one more day as he had a difficult night. Consult to Dr. Lafleur (2) CHF (congestive heart failure) Current Visit: Yes Status: Acute Plan: check an echocardiogram on the patient. He is on lisinopril, carvedilol and lasix as an outpatient. The patient kidney function in worsening. Would like to switch him to entresto. This will improve mortality and is better for renal function. Qualifiers: Heart failure type: systolic Heart failure chronicity: chronic Qualified Code(s): I50.22 - Chronic systolic (congestive) heart failure (3) CKD (chronic kidney disease) stage 3, GFR 30-59 ml/min Current Visit: Yes Status: Chronic Plan: Mild worsening. Will give gentle fluids. Hold the lasix in favor of entresto as stated above Qualifiers: Chronic kidney disease stage 3 subtype: stage 3b (GFR 30-44) Qualified Code(s): N18.32 - Chronic kidney disease, stage 3b (4) HTN (hypertension) Current Visit: Yes Status: Acute Plan: will restart the carvedilol and start him on entresto instead of the lisinopril. If the patient is not well controlled we can start him on amlodipine. Which he is on as an outpatient. Qualifiers: Hypertension type: primary hypertension Qualified Code(s): I10 - Essential (primary) hypertension Discharge Plan: Home Plan to discharge in: 24 Hours - Code Status/Comfort Care Code Status Assessed: No Physician Review: Patient Assessed, Agree with Above Assessment and Plan Critical Care: No Time Spent Managing PTS Care (In Minutes): 20
--- NOTE | 2022-03-14 12:48 | EKG ---
Test Date: 2022-03-12 Test Time: 18:31:36 Dialysis Chief Equipment Technician: RANDOLPH MEASUREMENT RESULTS: Intervals: Rate: 68 WI: 140 QRSD: 120 QT: 412 QTc: 438 [place]: P: 85 WI: 140 QRS: 11 T: 216 INTERPRETIVE STATEMENTS: Normal sinus rhythm Nonspecific intraventricular conduction delay ST & T wave abnormality, consider inferolateral ischemia Abnormal ECG Compared to ECG 03/12/2022 18:31:03 Intraventricular conduction delay now present Myocardial infarct finding no longer present ST (T wave) deviation still present Possible ischemia still present Electronically Signed On 03-14-22 12:47:19 CDT by Osmar Marinelli
[2022-03-14] MEDS: LEVALBUTEROL 0.63 MG/3 ML NEB NEB PRN (13:46)
[2022-03-15] MEDS: METHYLPREDNISOLONE 40 MG INJ IV SCH ×2 (02:14→08:19)
[2022-03-15] MEDS: carvediloL 3.125 MG TAB PO SCH (06:29)
--- NOTE | 2022-03-15 06:51 | ECHO ---
HEIGHT: 6 ft 0 in WEIGHT: 175 lb 0 oz DATE OF STUDY: 03/14/[address]: Thanh Blue MD 2-DIMENSIONAL: YES M.MODE: YES DOPPLER: YES COLOR FLOW: YES TDS: YES PORTABLE: YES DEFINITY: NO BUBBLE STUDY: NO DIAGNOSIS: CONGESTIVE HEART FAILURE CARDIAC HISTORY: CATHERIZATION:YES SURGERY: NO PROSTHETIC VALVE: NO PACEMAKER: NO MEASUREMENTS (cm) DIASTOLIC (NORMALS) SYSTOLIC (NORMALS) IVSd 1.2 (0.6-1.2) LA Diam 3.7 (1.9-4.0) LVEF % LVIDd 5.0 (3.5-5.7) LVIDs 3.4 (2.0-3.5) %FS 31% LVPWd 1.3 (0.6-1.2) Ao Diam 2.9 (2.0-3.7) 2 DIMENSIONAL ASSESSMENT: RIGHT ATRIUM: LEFT ATRIUM: RIGHT VENTRICLE: LEFT VENTRICLE: TRICUSPID VALVE: MITRAL VALVE: PULMONIC VALVE: AORTIC VALVE: PERICARDIAL EFFUSION: AORTIC ROOT: LEFT VENTRICULAR WALL MOTION: DOPPLER/COLOR FLOW: COMMENTS: VERY LIMITED STUDY DUE TO POOR WINDOWS. UNABLE TO EVALUATE CARDIAC STRUCTURES OR HEMODYNAMICS DUE TO POOR WINDOWS. TECHNOLOGIST: Sheryl MERCHANT
[2022-03-15 07:13] LABS: Absolute Lymphocytes (CBC) 2.1 K/uL (0.7-4.9); Hematocrit 38.1 % (39.6-49.0); Lymphocytes % 11.2 % (15.3-44.8); MCV 91.7 fL (80-100); MPV 8.3 fL (7.6-11.3); RBC Red Blood Cell Count 4.16 M/uL (4.33-5.43)
[2022-03-15 07:31] LABS: Albumin 2.5 g/dL (3.4-5.0); Bilirubin Total 0.3 mg/dL (0.2-1.0); Protein, Total 5.8 g/dL (6.4-8.2)
[2022-03-15] MEDS: SACUBITRIL/VALSARTAN 24/26 MG TAB PO SCH (08:19)
[2022-03-15] MEDS: ASPIRIN EC 81 MG TAB PO SCH (08:19)
--- NOTE | 2022-03-15 08:56 | P.DS ---
Admission Date: 03/12/22 Discharge Date: 03/15/22 Primary Care Provider: oliva Disposition: ROUTINE DISCHARGE Discharge Condition: GOOD Reason for Admission: copd exacerbation - Problems (1) COPD exacerbation Current Visit: Yes Status: Acute (2) CHF (congestive heart failure) Current Visit: Yes Status: Acute Qualifiers: Heart failure type: systolic Heart failure chronicity: chronic Qualified Code(s): I50.22 - Chronic systolic (congestive) heart failure (3) CKD (chronic kidney disease) stage 3, GFR 30-59 ml/min Current Visit: Yes Status: Chronic Qualifiers: Chronic kidney disease stage 3 subtype: stage 3b (GFR 30-44) Qualified Code(s): N18.32 - Chronic kidney disease, stage 3b (4) HTN (hypertension) Current Visit: Yes Status: Acute Qualifiers: Hypertension type: primary hypertension Qualified Code(s): I10 - Essential (primary) hypertension Brief History of Present Illness: Patient is an office patient of [employer]. he suffers from copd, chf and ckd. He was getting sob yesterday morning. Denies any contact with fumes or upper respiratory tract symptoms. The patient was worsening and came to the ER. Fo und to be in the high 80's to low 90% on his pulse oximeter. With some EKG changes. He was admitted for steroids and breathing treaments. He is doing better this morning. The troponins are negative. He is feeling much better. Hospital Course: Patient was admitted for copd exacerbation. He was started on breathing treatments and steroids. Is doing much better. His echo was a poor study and we did not get his ER. His kidney function improved with fluids. We have stopped his lasix and started the patient on entresto. Will discharge him today on a tapering dose of steroids. Will see if he qualifies for home O2. However he has been able to maintain his oxygen above 90 during the entire stay. Will have him follow up in a week. Need a cardiology and nephrology consult for the patient. Vital Signs/Physical Exam: Temp Pulse Resp BP Pulse Ox 97.4 F 52 18 135/63 96 03/15/22 08:00 03/15/22 08:00 03/15/22 08:00 03/15/22 08:00 03/15/22 08:00 General: Alert, In no apparent distress HEENT: Atraumatic, PERRLA, EOMI Neck: Supple, JVD not distended Respiratory: Clear to auscultation bilaterally, Normal air movement Cardiovascular: Regular rate/rhythm, Normal S1 S2 Gastrointestinal: Normal bowel sounds, No tenderness Musculoskeletal: No tenderness Integumentary: No rashes Neurological: Normal speech, Normal tone, Normal affect Lymphatics: No axilla or inguinal lymphadenopathy Laboratory Data at Discharge: WBC 18.9 K/uL (4.3-10.9) H 03/15/22 06:13 Hgb 12.8 g/dL (13.6-17.9) L 03/15/22 06:13 Hct 38.1 % (39.6-49.0) L 03/15/22 06:13 Plt Count 345 K/uL (152-406) 03/15/22 06:13 Sodium 131 mmol/L (136-145) L 03/15/22 06:13 Potassium 5.0 mmol/L (3.5-5.1) 03/15/22 06:13 BUN 52 mg/dL (7-18) H 03/15/22 06:13 Creatinine 2.04 mg/dL (0.55-1.3) H 03/15/22 06:13 Glucose 190 mg/dL (74-106) H 03/15/22 06:13 Total Bilirubin 0.3 mg/dL (0.2-1.0) 03/15/22 06:13 AST 11 U/L (15-37) L 03/15/22 06:13 ALT 14 U/L (12-78) 03/15/22 06:13 Alkaline Phosphatase 79 U/L (45-117) 03/15/22 06:13 Home Medications: Prednisone [Sterapred Ds] 10 mg PO BID 9 Days #21 tab.ds.pk 03/15/22 Sacubitril/Valsartan [Entresto 24 mg-26 mg Tablet] 1 tab PO BID 90 Days #180 tab 03/15/22 New Medications: Sacubitril/Valsartan [Entresto 24 mg-26 mg Tablet] 1 tab PO BID 90 Days #180 tab Prednisone [Sterapred Ds] 10 mg PO BID 9 Days #21 tab.ds.pk Diet: AHA Activity: Ad adela Followup: Thanh Blue MD [Primary Care Provider] - 1 Week Physician Review: Patient Assessed, Agree with Above Assessment and Plan Time spent managing pt's care (in minutes): 30
[2022-03-15] MEDS: LEVALBUTEROL 0.63 MG/3 ML NEB NEB PRN (09:34)
[2022-03-15 10:50] VITALS: O2SAT 98
[2022-03-15 12:05] VITALS: TEMP 97.8
[2022-03-15 16:15] VITALS: BP 146/65
--- OUTSIDE RECORDS SUMMARY | 2022-03-29 08:42 | XMS REPORT | Continuity of Care Document ---
:1950 Author Organization [facility] t Address [address] [place] [address] Care Team Providers Name Role Phone PCP, DOES NOT HAVE A Primary Care Physician Unavailable SP Attending Clinician Unavailable MALLORIE Attending Clinician Unavailable PRICE GARCIA Attending Clinician Unavailable Lawanda TATUM Attending Clinician Unavailable Lawanda Tatum MD Attending Clinician CHERIE MONTESINOS Attending Clinician Unavailable SU Attending Clinician Unavailable YAMEL Attending Clinician Unavailable PRICE GARCIA Admitting Clinician Unavailable Payers Payer Name Policy Type Policy Number Effective Date Expiration Date S maurice [facility] [id number] 2021 (MEDICARE 00:00:00 REPLACEMENT HMO) [facility] D [id number] 2021 [facility] 00:00:00 [facility] [id number] MEDICARE ADVANTAGE 00:00:00 PLAN Problems Condition Condition Condition Status Onset Resolution Last Treating Co mments Source Name Details Category Date Date Treatment Clinician Date 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 Asbestos Asbestos Problem Active UT exposure exposure Physic i ans Loculated 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 effusion effusion 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 Physici emphysema emphysema ans No known No known Disease Unive rs active active ity of problems problems [facility] Allergies, Adverse Reactions, Alerts Allergy Allergy Status Severity Reaction(s) Onset Inactive Treating Comm ents Source Name Type Date Date Clinician NO KNOWN Allergy Active [facility] ALLERGIE S NO KNOWN Drug Active Univers ALLERGIE Class ity of S [place] [facility] [place] Social History Social Habit Start Date Stop Date Quantity Comments Source Exposure to Yes [facility] SARS-CoV-2 (event) Medica l Branch Sex Assigned At [birth year] [facility] 00:00:00 00:00:00 Medical Branch Smoking Status Start Date Stop Date Source Smokes tobacco daily (finding) [facility] Physicians Unknown if ever smoked [facility] [place] Medications Ordered Filled Start Stop Current Ordering Indication Dosage Frequency Signature Comments Components Source Medication Medication Date Date Medication? Clinician (SIG) Name Name lisinopriL Yes [id number] 10mg Take 1 Univers 10 mg 4-17 tablet by ity of tablet 00:00: mouth at [place] 00 bedtime. Medical Branch metoprolol Yes [id number] 25mg Take 1 Univers tartrate 25 4-17 tablet by ity of mg tablet 00:00: mouth 2 [place] 00 (two) Medical times Branch daily. Spiriva Spiriva 2019-09 Yes MADISYN INHALE TWO UT Respimat Respimat 0-12 ENCARNACION (2) PUFFS Physici 2.5 MCG/ACT 2.5 MCG/ACT 00:00: M.D. BY MOUTH ans Inhalation Inhalation 00 ONCE Aerosol Aerosol DAILY. Solution Solution Metoprolol Metoprolol 2012-09 Yes HOMERO 1 Q0.5D TAKE 1 UT Tartrate 25 Tartrate 25 1-21 SDRINGOLA TABLET Physici MG Oral MG Oral 00:00: M.D. TWICE ans Tablet Tablet 00 DAILY Clopidogrel Clopidogrel Yes SLY 1 QD TAKE 1 UT Bisulfate Bisulfate 2-20 DANISH M.D. TABLET Physici 75 MG Oral 75 MG Oral 00:00: DAILY. ans Tablet Tablet 00 Aspirin 325 Aspirin 325 2011-09 Yes 1 QD TAKE 1 UT MG Oral MG Oral 2-28 TABLET Physici Tablet Tablet 00:00: DAILY ans Simvastatin Simvastatin 2011-09 Yes SLY 1 QD TAKE 1 UT 40 MG Oral 40 MG Oral 2-28 DANISH M.D. TABLET Physici Tablet Tablet 00:00: DAILY. ans 00 Lisinopril Lisinopril 2011-09 Yes SLY 1 QD TAKE 1 UT 10 MG Oral 10 MG Oral 2-28 DANISH M.D. TABLET Physici Tablet Tablet 00:00: DAILY. ans 00 Vital Signs Vital Name Observation Time Observation Value Comments Source WEIGHT 2022-01-25 81.5 kg 04:18:00 HEIGHT 2022-01-24 182.9 cm 04:48:00 WEIGHT 2022-01-24 78.8 kg 04:48:00 WEIGHT 2022-01-23 80.9 kg 04:10:00 HEIGHT 2022-01-22 182.9 cm 04:00:00 WEIGHT 2022-01-22 82 kg 04:00:00 WEIGHT 2022-01-25 81.5 kg 04:18:00 HEIGHT 2022-01-24 182.9 cm 04:48:00 WEIGHT 2022-01-24 78.8 kg 04:48:00 WEIGHT 2022-01-23 80.9 kg 04:10:00 HEIGHT 2022-01-22 182.9 cm 04:00:00 WEIGHT 2022-01-22 82 kg 04:00:00 Systolic blood 2021-12-25 181 mm[Hg] [facility] 10:44:00 [facility] Diastolic blood 2021-12-25 70 mm[Hg] [place] o pressure 10:44:00 [facility] Heart rate 2021-12-25 61 /min [facility] 10:44:00 [facility] Body temperature 2021-12-25 35.94 Domi [facility] 10:44:00 [facility] Respiratory rate 2021-12-25 20 /min [facility] 10:44:00 [facility] Body height 2021-12-25 182.9 cm [facility] 10:44:00 [facility] Body weight 2021-12-25 70.308 kg [facility] 10:44:00 [facility] BMI 2021-12-25 21.02 kg/m2 [facility] 10:44:00 [facility] Oxygen saturation 2021-12-25 97 /min [facility] Arterial blood 10:44:00 [facility] Pulse oximetry [place] Systolic blood 2020-06-30 141 mm[Hg] Location: LUE; [facility] Physicia ns pressure 07:34:00 Position: Sitting Diastolic blood 2020-06-30 60 mm[Hg] Location: LUE; [facility] Physici ans pressure 07:34:00 Position: Sitting Weight 2020-06-30 173.125 [lb_av] [facility] 07:34:00 Body mass index 2020-06-30 22.23 kg/m2 [facility] Physician s (BMI) [Ratio] 07:34:00 Body temperature 2020-06-30 97.2 [degF] Method: [facility] Physicia ns 07:34:00 Tympanic Heart Rate 2020-06-30 59 /min Location: L [facility] 07:34:00 Radial; Quality: Normal O2 SAT 2020-06-30 95 % Source: [facility] 07:34:00 Non-Rebreather Body height 2020-06-21 74 [in_us] [facility] 14:12:00 Weight 2020-06-21 171 [lb_av] [facility] 14:12:00 Body mass index 2020-06-21 21.96 kg/m2 [facility] (BMI) [Ratio] 14:12:00 Body temperature 2020-06-21 97.8 [degF] [facility] 14:12:00 Heart Rate 2020-06-21 54 /min [facility] 14:12:00 Respiratory rate 2020-06-21 18 /min [facility] Phys[facility] ns 14:12:00 O2 SAT 2020-06-21 97 % Source: RA [facility] 14:12:00 Systolic blood 2020-06-21 137 mm[Hg] Location: RUE; [facility] Physicia ns pressure 14:12:00 Position: Sitting Diastolic blood 2020-06-21 74 mm[Hg] Location: RUE; [place] Physici ans pressure 14:12:00 Position: Sitting Procedures Procedure Date / Time Performed Performing Clinician [facility] e NOTICE OF PRIVACY 2021-12-25 10:30:05 [facility], [facility] Name [facility] Branch CONSENT/REFUSAL FOR 2021-12-25 10:27:09 Doctor Unassigned, [facility] AND Name Medical Branch TREATMENT PET CT Lung solitary 2020-06-21 00:00:00 [facility] pulm nodule [id number] Plan of Care Planned Activity Planned Date Details Comments Source Diagnostic Test Pending 2020-06-21 00:00:[address] Lung solitary [facility] pulm nodule [id number] [code = 67546] Diagnostic Test Pending 2020-06-21 00:00:[address] Lung solitary [facility] pulm nodule 94970 [code = 94845] Encounters Start End Encounter Admission Attending Care Care Encounter Source Date/Time Date/Time Type Type Clinicians Facility Department ID 2022-03-24 2022-03-24 Outpatient DMG DMG [id number] [facility] 07:10:00 07:10:00 0715 Medica l Group 2022-02-22 2022-02-22 Outpatient PAM SNOWDEN [facility] SLEH [id number] [facility] 00:00:00 00:00:00 MAHBOOB 2022-01-22 2022-01-26 Inpatient ER MALLORIE, [facility] Medical ICU 5 [id number] [facility] 03:10:00 20:10:00 TARIQ 2021-12-25 2021-12-25 Emergency X YARIKY, [facility] ERT [id number] Univers 05:52:00 06:48:00 MARNIE mcduffie [facility] 2021-12-25 2021-12-25 Emergency Yariga, [facility] [id number] Univers 05:52:00 06:48:00 [facility] [id number] ity [facility] [id number] [facility] [id number] [place] [id number] Branch 2021-02-04 2021-02-04 Outpatient DMG DMG [id number] [facility] 08:00:00 08:00:00 0528 Medica l Group 2020-07-19 2020-07-19 Outpatient YAMEL [facility] PUL [id number] [facility] 13:21:00 15:55:00 ES 2020-06-29 2020-06-29 [facility] [id number] [place] 14:00:00 14:00:00 t; Jimmy LORENZO [facility] Gustabo BLUE M.D. [place] 2020-06-21 2020-06-21 Appointmen JOHN MONTESINOS Pulmonary & [id number] [place] 13:30:00 13:30:00 t; ES MONTESINOS [facility] Jimmy SUGGS M.D. Results Test Description Test Time Test Comments Results Result Comments Source BLOOD CULTURE 2022-01-27 07:00:32 Test Item Value Reference Range Interpretation Comme nts CULTURE (BEAKER) (test code = 1095) No growth in 5 days BLOOD [id number] 07:00:32 Test Item Value Reference Range Interpretation Comments CULTURE (BEAKER) (test No growth in 5 days code = 1095) POCT-GLUCOSE [id number] 16:01:13 Test Item Value Reference Range Interpretation Comments POC-GLUCOSE METER 136 mg/dL 70-110 H : TESTED A T [address] (BEAKER) (test code [address], = 1538) [place] [address] 478: Campground Cleaning Attendant/Techni calista ID = [id number] for Cerv antes, Crystal POCT-GLUCOSE [id number] 11:30:14 Test Item Value Reference Range Interpretation Comments POC-GLUCOSE METER 112 mg/dL 70-110 H : TESTED A T [address] (BEAKER) (test code [address], = 1538) [place] [address] 478: Campground Cleaning Attendant/Techni calista ID = [id number] for Cerv antes, Crystal POCT-GLUCOSE [id number] 06:45:43 Test Item Value Reference Range Interpretation Comments POC-GLUCOSE METER 150 mg/dL 70-110 H : TESTED A T [address] (BEAKER) (test code [address], = 1538) [place] [address] 478: Campground Cleaning Attendant/Techni calista ID = [id number] for Ivette Ramsey [id number] 06:05:04 Test Item Value Reference Range Interpretation Comments MAGNESIUM (BEAKER) (test code = 2.2 mg/dL 1.5-3.0 627) Campground Cleaning Attendant ID - [id number] ID - [id number] ID - [id number] ID - [id number] METABOLIC [id number] 06:04:06 Test Item Value Reference Range Interpretation Comments SODIUM (BEAKER) (test 134 meq/L 135-148 L code = 381) POTASSIUM (BEAKER) 5.0 meq/L 3.6-5.5 (test code = 379) CHLORIDE (BEAKER) 99 meq/L 98-106 (test code = 382) CO2 (BEAKER) (test 24 meq/L 20-29 code = 355) BLOOD UREA NITROGEN 63 mg/dL 10-26 H (BEAKER) (test code = 354) CREATININE (BEAKER) 1.97 mg/dL 0.50-1.20 H (test code = 358) GLUCOSE RANDOM 129 mg/dL 70-110 H (BEAKER) (test code = 652) CALCIUM (BEAKER) 8.4 mg/dL 8.5-10.5 L (test code = 697) EGFR (BEAKER) (test INSUFFIC IENT CLINICAL code = 1092) DATA TO CALCULA TE ESTIMATED GFR. Campground Cleaning Attendant ID - [id number] ID - [id number] ID - [id number] ID - [id number] ID - [id number] ID - [id number] ID - [id number] ID - [id number] ID - [id number] ID - [id number] W/PLT COUNT & AUTO DIFFERENTIAL 2022-01-26 05:53:41 Test Item Value Reference Range Interpretation Comments WHITE BLOOD CELL COUNT (BEAKER) 13.7 K/ L 4.0-10.0 H (test code = 775) RED BLOOD CELL COUNT (BEAKER) 4.07 M/ L 4.20-5.80 L (test code = 761) HEMOGLOBIN (BEAKER) (test code = 12.7 GM/DL 13.0-16.8 L 410) HEMATOCRIT (BEAKER) (test code = 36.7 % 36.0-50.0 411) MEAN CORPUSCULAR VOLUME (BEAKER) 90.2 fL 82.0-99.0 (test code = 753) MEAN CORPUSCULAR HEMOGLOBIN 31.2 pg 27.0-33.0 (BEAKER) (test code = 751) MEAN CORPUSCULAR HEMOGLOBIN CONC 34.6 GM/DL 32.0-36.0 (BEAKER) (test code = 752) RED CELL DISTRIBUTION WIDTH 15.2 % 12.0-15.0 H (BEAKER) (test code = 412) PLATELET COUNT (BEAKER) (test 211 K/CU MM 150-430 code = 756) MEAN PLATELET VOLUME (BEAKER) 10.6 fL 6.0-11.5 (test code = 754) NUCLEATED RED BLOOD CELLS 0 /100 WBC 0-0 (BEAKER) (test code = 413) NEUTROPHILS RELATIVE PERCENT 72 % (BEAKER) (test code = 429) LYMPHOCYTES RELATIVE PERCENT 19 % (BEAKER) (test code = 430) MONOCYTES RELATIVE PERCENT 6 % (BEAKER) (test code = 431) EOSINOPHILS RELATIVE PERCENT 0 % (BEAKER) (test code = 432) BASOPHILS RELATIVE PERCENT 0 % (BEAKER) (test code = 437) NEUTROPHILS ABSOLUTE COUNT 9.88 K/ L 1.80-8.00 H (BEAKER) (test code = 670) LYMPHOCYTES ABSOLUTE COUNT 2.60 K/ L 1.48-4.50 (BEAKER) (test code = 414) MONOCYTES ABSOLUTE COUNT (BEAKER) 0.85 K/ L 0.00-1.30 (test code = 415) EOSINOPHILS ABSOLUTE COUNT 0.00 K/ L 0.00-0.50 (BEAKER) (test code = 416) BASOPHILS ABSOLUTE COUNT (BEAKER) 0.04 K/ L 0.00-0.20 (test code = 417) IMMATURE GRANULOCYTES-RELATIVE 2 % 0-0 H PERCENT (BEAKER) (test code = 2801) POCT-GLUCOSE [id number] 21:50:33 Test Item Value Reference Range Interpretation Comments POC-GLUCOSE METER 173 mg/dL 70-110 H : TESTED A T [address] (BEAKER) (test code [facility], = 1538) [place] [address]: Campground Cleaning Attendant/Techni calista ID = [id number] for Ivette Ramsey POCT-GLUCOSE [id number] 16:45:23 Test Item Value Reference Range Interpretation Comments POC-GLUCOSE METER 134 mg/dL 70-110 H : TESTED A T [address] (BEAKER) (test code [facility], = 1538) [place] [address]: Campground Cleaning Attendant/Techni calista ID = [id number] for Dapr emont, Deisy POCT-GLUCOSE [id number] 11:45:21 Test Item Value Reference Range Interpretation Comments POC-GLUCOSE METER 125 mg/dL 70-110 H : TESTED A T [address] (BEAKER) (test [facility] = 1538) [place] [address] 478: Campground Cleaning Attendant/Techni calista ID = [id number] for Dapr emont, Deisy SPUTUM CULTURE + GRAM [id number] 08:54:21 Test Item Value Reference Range Interpretation Comments CULTURE (BEAKER) 4+ Normal respiratory (test code = 1095) severino present GRAM STAIN RESULT 1+ White blood cells (BEAKER) (test code = seen 1123) GRAM STAIN RESULT 1+ epithelial cells (BEAKER) (test code = 95840) GRAM STAIN RESULT 3+ Mixed severino (BEAKER) (test code = 63642) RAD, CHEST, 1 VIEW, NON [id number] 07:33:00Reason for exam:->[facility] : 1950 Sex: MFINAL REPORT CHEST AP PORTABLE SEMIERECT Comparison exam: 01/23/2022 History provided: Pneumonia Heart size normal. Chronic pleural thickening at the right base. Lungs free ofacute disease and vascularity normal. Signed: Lavonne Sutton MDReport Verified Date/Time: 01/25/2022 07:33:28 Reading Location: [facility] Diagnostic Imaging Reading Room [place] [address] POCT-GLUCOSE [id number] 06:54:14 Test Item Value Reference Range Interpretation Comments POC-GLUCOSE METER 133 mg/dL 70-110 H : TESTED A T [address] (BEAKER) (test code [address], = 1538) [facility] [place] [address] 478: Campground Cleaning Attendant/Techni calista ID = [id number] for Ivette Ramsey [id number] 04:53:42 Test Item Value Reference Range Interpretation Comments MAGNESIUM (BEAKER) (test code = 2.3 mg/dL 1.5-3.0 627) Campground Cleaning Attendant ID - [id number] ID - [id number] ID - [id number] ID - [id number] BASIC METABOLIC [id number] 04:52:53 Test Item Value Reference Range Interpretation Comments SODIUM (BEAKER) (test 136 meq/L 135-148 code = 381) POTASSIUM (BEAKER) 4.7 meq/L 3.6-5.5 (test code = 379) CHLORIDE (BEAKER) 100 meq/L 98-106 (test code = 382) CO2 (BEAKER) (test 25 meq/L 20-29 code = 355) BLOOD UREA NITROGEN 65 mg/dL 10-26 H (BEAKER) (test code = 354) CREATININE (BEAKER) 2.22 mg/dL 0.50-1.20 H (test code = 358) GLUCOSE RANDOM 137 mg/dL 70-110 H (BEAKER) (test code = 652) CALCIUM (BEAKER) 8.4 mg/dL 8.5-10.5 L (test code = 697) EGFR (BEAKER) (test INSUFFIC IENT CLINICAL code = 1092) DATA TO CALCULA TE ESTIMATED GFR. Campground Cleaning Attendant ID - [id number] ID - [id number] ID - [id number] ID - [id number] ID - [id number] ID - [id number] ID - [id number] ID - [id number] ID - [id number] ID - [id number] W/PLT COUNT & AUTO [id number] 04:28:30 Test Item Value Reference Range Interpretation Comments WHITE BLOOD CELL COUNT (BEAKER) 17.0 K/ L 4.0-10.0 H (test code = 775) RED BLOOD CELL COUNT (BEAKER) 4.10 M/ L 4.20-5.80 L (test code = 761) HEMOGLOBIN (BEAKER) (test code = 12.6 GM/DL 13.0-16.8 L 410) HEMATOCRIT (BEAKER) (test code = 36.4 % 36.0-50.0 411) MEAN CORPUSCULAR VOLUME (BEAKER) 88.8 fL 82.0-99.0 (test code = 753) MEAN CORPUSCULAR HEMOGLOBIN 30.7 pg 27.0-33.0 (BEAKER) (test code = 751) MEAN CORPUSCULAR HEMOGLOBIN CONC 34.6 GM/DL 32.0-36.0 (BEAKER) (test code = 752) RED CELL DISTRIBUTION WIDTH 15.4 % 12.0-15.0 H (BEAKER) (test code = 412) PLATELET COUNT (BEAKER) (test 218 K/CU MM 150-430 code = 756) MEAN PLATELET VOLUME (BEAKER) 10.2 fL 6.0-11.5 (test code = 754) NUCLEATED RED BLOOD CELLS 0 /100 WBC 0-0 (BEAKER) (test code = 413) NEUTROPHILS RELATIVE PERCENT 75 % (BEAKER) (test code = 429) LYMPHOCYTES RELATIVE PERCENT 15 % (BEAKER) (test code = 430) MONOCYTES RELATIVE PERCENT 8 % (BEAKER) (test code = 431) EOSINOPHILS RELATIVE PERCENT 0 % (BEAKER) (test code = 432) BASOPHILS RELATIVE PERCENT 0 % (BEAKER) (test code = 437) NEUTROPHILS ABSOLUTE COUNT 12.77 K/ L 1.80-8.00 H (BEAKER) (test code = 670) LYMPHOCYTES ABSOLUTE COUNT 2.55 K/ L 1.48-4.50 (BEAKER) (test code = 414) MONOCYTES ABSOLUTE COUNT (BEAKER) 1.34 K/ L 0.00-1.30 H (test code = 415) EOSINOPHILS ABSOLUTE COUNT 0.00 K/ L 0.00-0.50 (BEAKER) (test code = 416) BASOPHILS ABSOLUTE COUNT (BEAKER) 0.04 K/ L 0.00-0.20 (test code = 417) IMMATURE GRANULOCYTES-RELATIVE 2 % 0-0 H PERCENT (BEAKER) (test code = 2801) POCT-GLUCOSE [id number] 20:59:54 Test Item Value Reference Range Interpretation Comments POC-GLUCOSE METER 148 mg/dL 70-110 H : TESTED A T [address] (BEAKER) (test code [address], = 1538) [place] [address]: Campground Cleaning Attendant/Techni calista ID = [id number] for Ivette Ramsey POCT-GLUCOSE [id number] 15:51:00 Test Item Value Reference Range Interpretation Comments POC-GLUCOSE METER 156 mg/dL 70-110 H : TESTED A T [address] (BEAKER) (test code [address], = 1538) [facility] 77 478: Campground Cleaning Attendant/Techni calista ID = [id number] for Kiki Skaggs POCT-GLUCOSE [id number] 11:44:26 Test Item Value Reference Range Interpretation Comments POC-GLUCOSE METER 139 mg/dL 70-110 H : TESTED A T [address] (BEAKER) (test code [address], = 1538) [facility] 77 478: Campground Cleaning Attendant/Techni calista ID = [id number] for Kiki Skaggs BASIC METABOLIC [id number] 07:34:29 Test Item Value Reference Range Interpretation Comments SODIUM (BEAKER) (test 136 meq/L 135-148 code = 381) POTASSIUM (BEAKER) 4.8 meq/L 3.6-5.5 (test code = 379) CHLORIDE (BEAKER) 100 meq/L 98-106 (test code = 382) CO2 (BEAKER) (test 24 meq/L 20-29 code = 355) BLOOD UREA NITROGEN 62 mg/dL 10-26 H (BEAKER) (test code = 354) CREATININE (BEAKER) 2.21 mg/dL 0.50-1.20 H (test code = 358) GLUCOSE RANDOM 141 mg/dL 70-110 H (BEAKER) (test code = 652) CALCIUM (BEAKER) 8.2 mg/dL 8.5-10.5 L (test code = 697) EGFR (BEAKER) (test INSUFFIC IENT CLINICAL code = 1092) DATA TO CALCULA TE ESTIMATED GFR. Campground Cleaning Attendant ID - DSENSONOperator ID - DSENSONOperator ID - DSENSONOperator ID - DSENSONOperator ID - DSENSONOperator ID - DSENSONOperator ID - DSENSONOperator ID - DSENSONOperator ID - DSENSONOperator ID - DSENSONHEPATIC FUNCTION PANEL 2022-01-24 07:33:52 Test Item Value Reference Range Interpretation Comments TOTAL PROTEIN (BEAKER) (test code = 6.0 gm/dL 6.0-8.5 770) ALBUMIN (BEAKER) (test code = 1145) 3.4 g/dL 3.5-5.0 L BILIRUBIN TOTAL (BEAKER) (test code 0.4 mg/dL 0.1-1.2 = 377) BILIRUBIN DIRECT (BEAKER) (test 0.2 mg/dL 0.0-0.4 code = 706) ALKALINE PHOSPHATASE (BEAKER) (test 53 U/L 30-115 code = 346) AST (SGOT) (BEAKER) (test code = 12 U/L 5-40 353) ALT (SGPT) (BEAKER) (test code = 18 U/L 5-50 347) Campground Cleaning Attendant ID - DSENSONOperator ID - DSENSONOperator ID - DSENSONOperator ID - DSENSONOperator ID - DSENSONOperator ID - DSENSONOperator ID - DSENSONOperator ID - DSENSONOperator ID - DSENSONOperator ID - [id number] W/PLT COUNT & AUTO [id number] 07:19:24 Test Item Value Reference Range Interpretation Comments WHITE BLOOD CELL COUNT (BEAKER) 21.1 K/ L 4.0-10.0 H (test code = 775) RED BLOOD CELL COUNT (BEAKER) 4.20 M/ L 4.20-5.80 (test code = 761) HEMOGLOBIN (BEAKER) (test code = 12.9 GM/DL 13.0-16.8 L 410) HEMATOCRIT (BEAKER) (test code = 37.5 % 36.0-50.0 411) MEAN CORPUSCULAR VOLUME (BEAKER) 89.3 fL 82.0-99.0 (test code = 753) MEAN CORPUSCULAR HEMOGLOBIN 30.7 pg 27.0-33.0 (BEAKER) (test code = 751) MEAN CORPUSCULAR HEMOGLOBIN CONC 34.4 GM/DL 32.0-36.0 (BEAKER) (test code = 752) RED CELL DISTRIBUTION WIDTH 15.3 % 12.0-15.0 H (BEAKER) (test code = 412) PLATELET COUNT (BEAKER) (test 238 K/CU MM 150-430 code = 756) MEAN PLATELET VOLUME (BEAKER) 10.5 fL 6.0-11.5 (test code = 754) NUCLEATED RED BLOOD CELLS 0 /100 WBC 0-0 (BEAKER) (test code = 413) NEUTROPHILS RELATIVE PERCENT 82 % (BEAKER) (test code = 429) LYMPHOCYTES RELATIVE PERCENT 12 % (BEAKER) (test code = 430) MONOCYTES RELATIVE PERCENT 4 % (BEAKER) (test code = 431) EOSINOPHILS RELATIVE PERCENT 0 % (BEAKER) (test code = 432) BASOPHILS RELATIVE PERCENT 0 % (BEAKER) (test code = 437) NEUTROPHILS ABSOLUTE COUNT 17.31 K/ L 1.80-8.00 H (BEAKER) (test code = 670) LYMPHOCYTES ABSOLUTE COUNT 2.63 K/ L 1.48-4.50 (BEAKER) (test code = 414) MONOCYTES ABSOLUTE COUNT (BEAKER) 0.84 K/ L 0.00-1.30 (test code = 415) EOSINOPHILS ABSOLUTE COUNT 0.00 K/ L 0.00-0.50 (BEAKER) (test code = 416) BASOPHILS ABSOLUTE COUNT (BEAKER) 0.05 K/ L 0.00-0.20 (test code = 417) IMMATURE GRANULOCYTES-RELATIVE 1 % 0-0 H PERCENT (BEAKER) (test code = 2801) POCT-GLUCOSE [id number] 07:05:35 Test Item Value Reference Range Interpretation Comments POC-GLUCOSE METER 129 mg/dL 70-110 H : TESTED A T [facility] 131 ([facility]) (test code [facility], = 1538) [place] [id number]: Campground Cleaning Attendant/Techni calista ID = [id number] for Iza ety, Elham POCT-GLUCOSE [id number] 22:17:06 Test Item Value Reference Range Interpretation Comments POC-GLUCOSE METER 135 mg/dL 70-110 H : TESTED A T [facility] 1317 ([facility]) (test code [facility], = 1538) [place] [id number]: Campground Cleaning Attendant/Techni calista ID = [id number] for Iza ety, Elham POCT-GLUCOSE [id number] 16:21:48 Test Item Value Reference Range Interpretation Comments POC-GLUCOSE METER 178 mg/dL 70-110 H : Notified RN/MD: TESTED ([facility]) (test code AT [facility] [address] [place] = 1538) [place] [id number]: Campground Cleaning Attendant/Techni calista ID = [id number] for Shamirlawanda Betsy HEPATITIS PANEL, [id number] 14:58:49 Test Item Value Reference Range Interpretation Comments HEPATITIS A IGM ANTIBODY ([facility]) Nonreactive Nonreactive (test code = 498) HEPATITIS B CORE IGM ANTIBODY Nonreactive Nonreactive ([facility]) (test code = 645) HEPATITIS C ANTIBODY (BEAKER) Nonreactive Nonreactive (test code = 367) HEPATITIS B SURFACE ANTIGEN (2) Nonreactive Nonreactive (NUBIAAKER) (test code = 2585) Campground Cleaning Attendant ID - DBOperator ID - DBPOCT-GLUCOSE [id number] 12:30:38 Test Item Value Reference Range Interpretation Comments POC-GLUCOSE METER 184 mg/dL 70-110 H : Notified RN/MD: TESTED ([facility]) (test code AT [facility] [address] [place] = 1538) [facility] [id number]: Campground Cleaning Attendant/Techni calista ID = [id number] for Estelita Wetzelita VENOUS DOPPLER LEGS, [id number] 10:54:00Reason for exam:->[facility] : 1950 Sex: MFINAL REPORT Bilateral lower extremity venous Doppler evaluation INDICATION: DVT Discussion: Arana-scale, color Doppler, and spectral waveform analysis evaluations of the bilateral lower extremity deep venous systems are obtained. The bilateral common femoral, superficial femoral, popliteal, posterior tibial and peroneal veins are compressible and demonstrate normal venous waveforms. There is normal response to augmentation. Impression: No sonographic evidence of deep venous thrombosis of the bilateral lower extremity. Signed: Alyssa Bootheport Verified Date/Time: 01/23/2022 10:54:12 Reading Location: [facility] Radiology Reading Room RAD, CHEST, 1 VIEW, NON [id number] 09:00:00 Reason for exam:->PNAShould this be performed at the bedside?->Yes [facility] CENTERName: INES NAZARIO : 1950 Sex: MFINAL REPORT TECHNIQUE: Frontal view of the chest. INDICATION: PNA COMPARISON:01/22/2022 DISCUSSION:Limited evaluation due to portable technique. Lines and hardware: EKG leadsHeart and mediastinum: Stable.Lungs and pleura: Stable streaky right basilar airspace opacities with a small effusion. Left lung is grossly clear. Negative for pneumothorax.Soft tissues and bones: No acute abnormality. IMPRESSION:Right basilar airspace opacities and small right effusion are stable. Signed: Alyssa Booth MDReport Verified Date/Time: 01/23/2022 09:00:23 Reading Location: [facility] RadiologyReading Room POCT- GLUCOSE [id number] 07:33:54 Test Item Value Reference Range Interpretation Comments POC-GLUCOSE METER 156 mg/dL 70-110 H : Notified RN/MD: TESTED (TONYA) (test code AT [facility] [address] = 1538) [facility] [place] [address]: Campground Cleaning Attendant/Techni calista ID = [id number] for Gurmeet Wetzel [id number] 05:00:02 Test Item Value Reference Range Interpretation Comments PARTIAL THROMBOPLASTIN 111.6 seconds 23.0-35.0 H Baylee l Information TIME ([facility] (test (Auto Ou tput) code = 760) HIV-1 ANTIGEN WITH HIV-1/2 [id number] 04:53:13 Test Item Value Reference Range Interpretation Comments HIV-1 ANTIGEN WITH HIV 1\T\2 Nonreactive Nonreactive ANTIBODY (2) (BEAKER) (test code = 2586) Campground Cleaning Attendant ID - [id number] METABOLIC [id number] 04:38:36 Test Item Value Reference Range Interpretation Comments SODIUM (BEAKER) (test 137 meq/L 135-148 code = 381) POTASSIUM (BEAKER) 4.6 meq/L 3.6-5.5 (test code = 379) CHLORIDE (BEAKER) 100 meq/L 98-106 (test code = 382) CO2 (BEAKER) (test 25 meq/L 20-29 code = 355) BLOOD UREA NITROGEN 52 mg/dL 10-26 H (BEAKER) (test code = 354) CREATININE (BEAKER) 2.17 mg/dL 0.50-1.20 H (test code = 358) GLUCOSE RANDOM 179 mg/dL 70-110 H (BEAKER) (test code = 652) CALCIUM (BEAKER) 8.1 mg/dL 8.5-10.5 L (test code = 697) EGFR (BEAKER) (test INSUFFIC IENT CLINICAL code = 1092) DATA TO CALCULA TE ESTIMATED GFR. Campground Cleaning Attendant ID - [id number] ID - [id number] ID - [id number] ID - [id number] ID - [id number] ID - [id number] ID - [id number] ID - [id number] ID - [id number] ID - [id number] FUNCTION [id number] 04:36:24 Test Item Value Reference Range Interpretation Comments TOTAL PROTEIN (BEAKER) (test code = 5.4 gm/dL 6.0-8.5 L 770) ALBUMIN (BEAKER) (test code = 1145) 3.2 g/dL 3.5-5.0 L BILIRUBIN TOTAL (BEAKER) (test code 0.4 mg/dL 0.1-1.2 = 377) BILIRUBIN DIRECT (BEAKER) (test 0.2 mg/dL 0.0-0.4 code = 706) ALKALINE PHOSPHATASE (BEAKER) (test 52 U/L 30-115 code = 346) AST (SGOT) (BEAKER) (test code = 16 U/L 5-40 353) ALT (SGPT) (BEAKER) (test code = 22 U/L 5-50 347) Campground Cleaning Attendant ID - [id number] ID - [id number] ID - [id number] ID - [id number] ID - [id number] ID - [id number] ID - [id number] ID - [id number] ID - [id number] ID - [id number] [id number] 04:30:27 Test Item Value Reference Range Interpretation Comments HEMOGLOBIN A1C (BEAKER) (test code = 5.8 % 4.3-6.1 368) Campground Cleaning Attendant ID - [id number] W/PLT COUNT & AUTO [id number] 04:17:15 Test Item Value Reference Range Interpretation Comments WHITE BLOOD CELL COUNT (BEAKER) 19.3 K/ L 4.0-10.0 H (test code = 775) RED BLOOD CELL COUNT (BEAKER) 3.96 M/ L 4.20-5.80 L (test code = 761) HEMOGLOBIN (BEAKER) (test code = 12.1 GM/DL 13.0-16.8 L 410) HEMATOCRIT (BEAKER) (test code = 35.7 % 36.0-50.0 L 411) MEAN CORPUSCULAR VOLUME (BEAKER) 90.2 fL 82.0-99.0 (test code = 753) MEAN CORPUSCULAR HEMOGLOBIN 30.6 pg 27.0-33.0 (BEAKER) (test code = 751) MEAN CORPUSCULAR HEMOGLOBIN CONC 33.9 GM/DL 32.0-36.0 (BEAKER) (test code = 752) RED CELL DISTRIBUTION WIDTH 15.2 % 12.0-15.0 H (BEAKER) (test code = 412) PLATELET COUNT (BEAKER) (test 213 K/CU MM 150-430 code = 756) MEAN PLATELET VOLUME (BEAKER) 10.1 fL 6.0-11.5 (test code = 754) NUCLEATED RED BLOOD CELLS 0 /100 WBC 0-0 (BEAKER) (test code = 413) NEUTROPHILS RELATIVE PERCENT 84 % (BEAKER) (test code = 429) LYMPHOCYTES RELATIVE PERCENT 11 % (BEAKER) (test code = 430) MONOCYTES RELATIVE PERCENT 4 % (BEAKER) (test code = 431) EOSINOPHILS RELATIVE PERCENT 0 % (BEAKER) (test code = 432) BASOPHILS RELATIVE PERCENT 0 % (BEAKER) (test code = 437) NEUTROPHILS ABSOLUTE COUNT 16.26 K/ L 1.80-8.00 H (BEAKER) (test code = 670) LYMPHOCYTES ABSOLUTE COUNT 2.10 K/ L 1.48-4.50 (BEAKER) (test code = 414) MONOCYTES ABSOLUTE COUNT (BEAKER) 0.74 K/ L 0.00-1.30 (test code = 415) EOSINOPHILS ABSOLUTE COUNT 0.00 K/ L 0.00-0.50 (BEAKER) (test code = 416) BASOPHILS ABSOLUTE COUNT (BEAKER) 0.02 K/ L 0.00-0.20 (test code = 417) IMMATURE GRANULOCYTES-RELATIVE 1 % 0-0 H PERCENT (BEAKER) (test code = 2801) TROPONIN [id number] 01:16:05 Test Item Value Reference Range Interpretation Comments TROPONIN I (BEAKER) (test code = 0.56 ng/mL 0.00-0.15 HH 397) Troponin I (TnI) levels must be interpreted in the context of the presenting symptoms and the clinical findings. Elevated TnI levels indicate myocardial damage, but are not specific for ischemic heart disease. Elevated TnI levels are seen in patients with other cardiac conditions (including myocarditis and congestive heart failure), and slight TnI elevations occur in patients with other conditions, including sepsis, renal failure, acidosis, acute neurological disease, and persistent tachyarrhythmia.Campground Cleaning Attendant ID - [id number] 20:56:12 Test Item Value Reference Range Interpretation Comments POC-GLUCOSE METER 169 mg/dL 70-110 H : Notified RN/MD: TESTED (BEAKER) (test code AT [facility] [address] [place] [address] = 1538) [facility] [address] Campground Cleaning Attendant/Techni calista ID = [id number] for Louise Montano [id number] 20:43:27 Test Item Value Reference Range Interpretation Comments PARTIAL THROMBOPLASTIN 43.3 seconds 23.0-35.0 H Final Information TIME (BEAKER) (test (Auto Ou tput) code = 760) [id number] 17:13:58 Test Item Value Reference Range Interpretation Comments GLUCOSE RANDOM (TONYA) (test code 247 mg/dL 70-110 H = 652) Campground Cleaning Attendant ID - DSCROWTROPONIN [id number] 17:03:16 Test Item Value Reference Range Interpretation Comments TROPONIN I (TONYA) (test code = 0.57 ng/mL 0.00-0.15 HH 397) Troponin I (TnI) levels must be interpreted in the context of the presenting symptoms and the clinical findings. Elevated TnI levels indicate myocardial damage, but are not specific for ischemic heart disease. Elevated TnI levels are seen in patients with other cardiac conditions (including myocarditis and congestive heart failure), and slight TnI elevations occur in patients with other conditions, including sepsis, renal failure, acidosis, acute neurological disease, and persistent tachyarrhythmia.Campground Cleaning Attendant ID - ROXLEGIONELLA ANTIGEN, [id number] 14:05:17 Test Item Value Reference Range Interpretation Comments L. PNEUMOPHILA Negative - see Negative fo r L. SEROGP 1 UR AG comment pneumophila (TONYA) (test code serogrou p 1 antigen, = 1156) suggesting no r ecent or current infe ction with this serog roup. Legionellosis c annot be ruled out si nce other serogroup s and species may cau se disease. U/S, RENAL, [id number] 14:05:00Reason for exam:->elevated creatine [facility] : 1950 Sex: MFINAL REPORT TECHNIQUE: Grayscale ultrasound of the kidneys and bladder. INDICATION: elevated creatine. COMPARISON: None. FINDINGS: RIGHT KIDNEY: The right kidney measures 10.8 x 4.2 x 5.3 cm with a cortical thickness of 1 cm. No solid mass lesions. No hydronephrosis. Renalartery and vein are patent. LEFT KIDNEY: The left kidney measures 11.4 x 4.8 x 5.5 cm with a cortical thickness of 1 cm. No solid mass lesions. No hydronephrosis. Renal artery and vein are patent. A left upper pole anechoic renal lesion with posterior acoustic enhancement measures 2.3 cm and is consistent with a simple renal cyst. No follow-up imaging is recommended. BLADDER: Decompressed by Castro catheter. IMPRESSION: This is a normal renal ultrasound. No hydronephrosis Signed: Himanshu Neves MDReportVerified Date/Time: 01/22/2022 14:05:00 Reading Location: [facility] C013Y CT Body Reading Room STREP PNEUMONIAE [id number] 14:04:46 Test Item Value Reference Range Interpretation Comments STREP PNEUMONIAE Presumptive negative Presumptive negative ANTIGEN (BEAKER) for pneumococcal for pneumococcal (test code = 1615) pneumonia - see pneumonia - see comment commen Presumptive negative for pneumococcal pneumonia, suggesting no current or recent pneumococcal infection. Infection due to S. pneumoniae cannot be ruled out since the antigen present in the sample may be below the detection limit of the test. TROPONIN [id number] 12:03:41 Test Item Value Reference Range Interpretation Comments TROPONIN I (BEAKER) (test code = 0.60 ng/mL 0.00-0.15 [facility]) Troponin I (TnI) levels must be interpreted in the context of the presenting symptoms and the clinical findings. Elevated TnI levels indicate myocardial damage, but are not specific for ischemic heart disease. Elevated TnI levels are seen in patients with other cardiac conditions (including myocarditis and congestive heart failure), and slight TnI elevations occur in patients with other conditions, including sepsis, renal failure, acidosis, acute neurological disease, and persistent tachyarrhythmia.Campground Cleaning Attendant ID - DSENSONBASIC METABOLIC [id number] 11:54:31 Test Item Value Reference Range Interpretation Comments SODIUM (BEAKER) (test 141 meq/L 135-148 code = 381) POTASSIUM (BEAKER) 4.6 meq/L 3.6-5.5 Specimen slightly (test code = 379) hemolyzed CHLORIDE (BEAKER) 102 meq/L 98-106 (test code = 382) CO2 (BEAKER) (test 21 meq/L 20-29 code = 355) BLOOD UREA NITROGEN 44 mg/dL 10-26 H (BEAKER) (test code = 354) CREATININE (BEAKER) 2.27 mg/dL 0.50-1.20 H Specimen slightly (test code = 358) hemolyzed GLUCOSE RANDOM 147 mg/dL 70-110 H (BEAKER) (test code = 652) CALCIUM (BEAKER) 8.7 mg/dL 8.5-10.5 (test code = 697) EGFR (BEAKER) (test INSUFFIC IENT CLINICAL code = 1092) DATA TO CALCULA TE ESTIMATED GFR. Campground Cleaning Attendant ID - DSENSONOperator ID - DSENSONOperator ID - DSENSONOperator ID - DSENSONOperator ID - DSENSONOperator ID - DSENSONOperator ID - DSENSONOperator ID - DSENSONOperator ID - DSENSONOperator ID - DSENSONOperator ID - DSENSONOperator ID - DSENSONOperator ID - [id number] 11:45:04 Test Item Value Reference Range Interpretation Comments PARTIAL THROMBOPLASTIN 44.4 seconds 23.0-35.0 H Final Information TIME (BEAKER) (test (Auto Ou tput) code = 760) POCT-GLUCOSE [id number] 11:43:30 Test Item Value Reference Range Interpretation Comments POC-GLUCOSE METER 141 mg/dL 70-110 H : Notified RN/MD: TESTED (BEAKER) (test code AT [facility] [address] = 1538) [facility] [address]: Campground Cleaning Attendant/Techni calista ID = [id number] for Ash h, Gurmeet PUL PERF IMAGING, [id number] 09:49:00Unlisted Reason for Exam - Click Yes and Enter Reason Below->No [facility] : 1950 Sex: MFINAL REPORT PROCEDURE: LUNG SCAN - perfusion only CPT CODE: 02350 INDICATION: Elevated D-dimer PROTOCOL: 5.8 mCi of Tc-99m MAA was injected intravenously, and static perfusion images were obtained in multiple projections. Ventilation imaging was not performed due to COVID precautions. FINDINGS: Tracer distribution is subsegmentally and nonsegm entally, irregularly decreased in both lungs. There is additional diffuse decrease in the right lungcompared to the left. IMPRESSION: 1. Intermediate probability of acute or subacute pulmonary embolization.2. There is diffuse pulmonary parenchymal abnormality.3. Volume loss in the right lung. Signed: Roger Andrade [facility] Verified Date/Time: 01/22/2022 09:49:42 CT, CHEST, WITHOUT [id number] 09:47:00Unlisted Reason for Exam - Click Yes and Enter Reason Below->No [facility] : 1950 Sex: MFINAL REPORT CT of the chest, without contrast Clinical History: Pneumonia Technique: CT of the chest is performed without intravenous contrast administration. This exam was performed according to our departmental dose optimization program which includes automated exposurecontrol, adjustment of the mA and/or kV according to patient's size and/or use of iterative reconstructive technique. Comparison Film: Chest radiograph dated January 22, 2022 Discussion: ET is above the drea. A feeding tube enters the stomach. Visualized thyroid gland is normal. No supraclavicular, axillary, mediastinal or hilar lymphadenopathy. Heart and pericardium are unremarkable. There is a smallloculated right pleural effusion. Peripheral opacities in the middle and lower lobes are associated with architectural distortion, favor rounded atelectasis, although cannot entirely exclude superimposed airspace disease. Additionally, there are small foci of airspace opacities in the right lower lobe. Lungs are severely emphysematous, and there is mild degree of bronchial wall thickening. Partially imaged upper abdomen is unremarkable. Bony structures demonstrate degenerative changes. Impression: Severe pulmonary emphysema. Mild bronchial wall thickening. Small foci of airspace opacities in the right lower lobe, which may reflect aspiration or pneumonia. Small loculated right pleural effusion. Peripheral opacities in right middle and lower lobes associated with architectural distortion probably represent rounded atelectasis, but cannot entirely exclude superimposed infection. Signed: Dione Wilsonort Verified Date/Time: 01/22/2022 09:47:14 RAD, CHEST, 1 VIEW, NON [id number] 08:47:00Reason for exam:->ETT placementShould this be performed at the bedside?->Yes [facility] 1950 Sex: MFINAL REPORT TECHNIQUE: Frontal view of the chest. INDICATION: ETT placement. COMPARISON: 01/22/2022 at 3:18 AM. FINDINGS: LINES/TUBES: Endotracheal tube tip terminates 5 cm above the level of the drea. Esophagogastric tube tip projects over the proximal stomach with sidehole just above the expected location of the GE junction. Recommend advancing by 5 cm. HEART AND MEDIASTINUM: Cardiomediastinal contour is stable. LUNGS: Nodular opacity with volume loss and scarring/atelectasis at the right lung base, as before. Left lung remains clear. . PLEURA: Small right pleural effusion versus pleural thickening, unchanged. No left pleural effusion. No thorax. SOFT TISSUES AND BONES: Unremarkable. IMPRESSION: 1. Esophagogastric tube sidehole just above the level of the GE junction. Recommend advancing by 5 cm. Endotracheal tube tip projected 5 cm above the level of the drea.2. Persistent small right pleural effusion and right basilar opacity including somewhat nodular component within the right lower lung measuring 1.[address] may be helpful for further evaluation. Signed: Abhay Morrow MDReport Verified Date/Time: 01/22/2022 08:47:55 APTT 2022-01-22 06:22:16 Test Item Value Reference Range Interpretation Comments PARTIAL THROMBOPLASTIN 22.9 seconds 23.0-35.0 L Final Information TIME (BEAKER) (test (Auto Ou tput) code = 760) LACTIC ACID, [id number] 05:34:16 Test Item Value Reference Range Interpretation Comments LACTATE BLOOD 1.89 mmol/L See_Comment [Automated me ssage] VENOUS (2) (BEAKER) The syst em which (test code = 2872) generated this result transmitted ref erence range: 0.50-<2. 00. The reference range was not used to interpr et this result as normal/abnormal . Campground Cleaning Attendant ID - LITOOperator ID - LITOOperator ID - LITOOperator ID - CHI [id number] 05:31:10 Test Item Value Reference Range Interpretation Comments PROCALCITONIN (BEAKER) (test code 0.15 ng/mL <0.05 H = 3036) SEPSIS RISK (ng/mL)Low: 0.05-0.50Intermediate: 0.51-2.00High: >=2.01URINALYSIS WITH MICROSCOPIC IF [id number] 05:13:27 Test Item Value Reference Range Interpretation Comments COLOR (BEAKER) (test code = 470) Yellow CLARITY (BEAKER) (test code = 469) Clear SPECIFIC GRAVITY UA (BEAKER) (test 1.015 1.001-1.035 code = 468) PH UA (BEAKER) (test code = 467) 5.0 5.0-8.0 PROTEIN UA (BEAKER) (test code = Negative Negative 464) GLUCOSE UA (BEAKER) (test code = Negative Negative 365) KETONES UA (BEAKER) (test code = Negative Negative 371) BILIRUBIN UA (BEAKER) (test code = Negative Negative 462) BLOOD UA (BEAKER) (test code = 461) Small Negative A NITRITE UA (BEAKER) (test code = Negative Negative 465) LEUKOCYTE ESTERASE UA (BEAKER) Negative Negative (test code = 466) UROBILINOGEN UA (BEAKER) (test code 0.2 mg/dL 0.2-1.0 = 463) SOURCE(BEAKER) (test code = 2795) URINALYSIS [id number] 05:13:21 Test Item Value Reference Range Interpretation Comments RBC UA-MANUAL (BEAKER) (test <5 /HPF code = 1659) WBC UA-MANUAL (BEAKER) (test None Seen /HPF code = 1661) BACTERIA (BEAKER) (test code = Occasional 517) SQUAMOUS EPITHELIAL MANUAL None Seen /HPF (BEAKER) (test code = 1663) HYALINE CASTS MANUAL (BEAKER) 0-5 /LPF (test code = 1665) TROPONIN [id number] 05:01:28 Test Item Value Reference Range Interpretation Comments TROPONIN I (BEAKER) (test code = 0.27 ng/mL 0.00-0.15 HH 397) Troponin I (TnI) levels must be interpreted in the context of the presenting symptoms and the clinical findings. Elevated TnI levels indicate myocardial damage, but are not specific for ischemic heart disease. Elevated TnI levels are seen in patients with other cardiac conditions (including myocarditis and congestive heart failure), and slight TnI elevations occur in patients with other conditions, including sepsis, renal failure, acidosis, acute neurological disease, and persistent tachyarrhythmia.Campground Cleaning Attendant ID - LITOBASIC METABOLIC PANEL 2022-01-22 05:00:17 Test Item Value Reference Range Interpretation Comments SODIUM (BEAKER) (test 141 meq/L 135-148 code = 381) POTASSIUM (BEAKER) 5.3 meq/L 3.6-5.5 (test code = 379) CHLORIDE (BEAKER) 103 meq/L 98-106 (test code = 382) CO2 (BEAKER) (test 25 meq/L 20-29 code = 355) BLOOD UREA NITROGEN 40 mg/dL 10-26 H (BEAKER) (test code = 354) CREATININE (BEAKER) 2.33 mg/dL 0.50-1.20 H (test code = 358) GLUCOSE RANDOM 157 mg/dL 70-110 H (BEAKER) (test code = 652) CALCIUM (BEAKER) 8.7 mg/dL 8.5-10.5 (test code = 697) EGFR (BEAKER) (test INSUFFIC IENT CLINICAL code = 1092) DATA TO CALCULA TE ESTIMATED GFR. Campground Cleaning Attendant ID - LITOOperator ID - LITOOperator ID - LITOOperator ID - LITOOperator ID - LITOOperator ID - LITOOperator ID - LITOOperator ID - LITOOperator ID - LITOOperator ID - LITOB-TYPE NATRIURETIC FACTOR (BNP)2022-01-22 05:00:11 Test Item Value Reference Range Interpretation Comments B-TYPE NATRIURETIC PEPTIDE (BEAKER) 480 pg/mL 0-100 H (test code = 700) Campground Cleaning Attendant ID - LITOCBC W/PLT COUNT & AUTO [id number] 04:56:38 Test Item Value Reference Range Interpretation Comments WHITE BLOOD CELL COUNT (BEAKER) 16.8 K/ L 4.0-10.0 H (test code = 775) RED BLOOD CELL COUNT (BEAKER) 4.43 M/ L 4.20-5.80 (test code = 761) HEMOGLOBIN (BEAKER) (test code = 13.6 GM/DL 13.0-16.8 410) HEMATOCRIT (BEAKER) (test code = 40.9 % 36.0-50.0 411) MEAN CORPUSCULAR VOLUME (BEAKER) 92.3 fL 82.0-99.0 (test code = 753) MEAN CORPUSCULAR HEMOGLOBIN 30.7 pg 27.0-33.0 (BEAKER) (test code = 751) MEAN CORPUSCULAR HEMOGLOBIN CONC 33.3 GM/DL 32.0-36.0 (BEAKER) (test code = 752) RED CELL DISTRIBUTION WIDTH 15.6 % 12.0-15.0 H (BEAKER) (test code = 412) PLATELET COUNT (BEAKER) (test 200 K/CU MM 150-430 code = 756) MEAN PLATELET VOLUME (BEAKER) 10.4 fL 6.0-11.5 (test code = 754) NUCLEATED RED BLOOD CELLS 0 /100 WBC 0-0 (BEAKER) (test code = 413) NEUTROPHILS RELATIVE PERCENT 85 % (BEAKER) (test code = 429) LYMPHOCYTES RELATIVE PERCENT 9 % (BEAKER) (test code = 430) MONOCYTES RELATIVE PERCENT 5 % (BEAKER) (test code = 431) EOSINOPHILS RELATIVE PERCENT 0 % (BEAKER) (test code = 432) BASOPHILS RELATIVE PERCENT 0 % (BEAKER) (test code = 437) NEUTROPHILS ABSOLUTE COUNT 14.21 K/ L 1.80-8.00 H (BEAKER) (test code = 670) LYMPHOCYTES ABSOLUTE COUNT 1.57 K/ L 1.48-4.50 (BEAKER) (test code = 414) MONOCYTES ABSOLUTE COUNT (BEAKER) 0.83 K/ L 0.00-1.30 (test code = 415) EOSINOPHILS ABSOLUTE COUNT 0.00 K/ L 0.00-0.50 (BEAKER) (test code = 416) BASOPHILS ABSOLUTE COUNT (BEAKER) 0.02 K/ L 0.00-0.20 (test code = 417) IMMATURE GRANULOCYTES-RELATIVE 1 % 0-0 H PERCENT (BEAKER) (test code = 2801) [id number] 04:53:09 Test Item Value Reference Range Interpretation Comments D-DIMER QUANTITATIVE 5.80 MG/L FEU <0.50 H Final Information (BEAKER) (test code = (Auto Output) 877) REGARDING D-DIMER RESULTS: The 98% NPV (Negative Predictive Value) for DVT/PE exclusion is 0.50 mg/LFEU as suggested by the video camera operator and as approved by the FDA.PROTHROMBIN [id number] 04:52:30 Test Item Value Reference Range Interpretation Comments PROTIME (BEAKER) 11.0 seconds 9.3-12.0 Final Infor mation (test code = 759) (Auto Outp ut) INR (BEAKER) (test 1.00 See_Comment Final Inf ormation code = 370) (Auto Output) [Automated mess age] The system Jeeves generated this result transmitted ref erence range: <=5.90. The reference range was not used to int erpret this result as normal/abnormal . RECOMMENDED COUMADIN/WARFARIN INR THERAPY RANGESSTANDARD DOSE: 2.0 - 3.0 Includes: PROPHYLAXIS forvenous thrombosis, systemic embolization; TREATMENT for venous thrombosis and/or pulmonary embolus.HIGH RISK: Target INR is 2.5-3.5 for patients with mechanical heart valves.HEMOGLOBIN [id number] 04:51:27 Test Item Value Reference Range Interpretation Comments HEMOGLOBIN A1C (BEAKER) (test code = 5.7 % 4.3-6.1 368) Campground Cleaning Attendant ID - LITOHEPATIC FUNCTION [id number] 04:50:07 Test Item Value Reference Range Interpretation Comments TOTAL PROTEIN (BEAKER) (test code = 6.3 gm/dL 6.0-8.5 770) ALBUMIN (BEAKER) (test code = 1145) 3.6 g/dL 3.5-5.0 BILIRUBIN TOTAL (BEAKER) (test code 0.3 mg/dL 0.1-1.2 = 377) BILIRUBIN DIRECT (BEAKER) (test 0.2 mg/dL 0.0-0.4 code = 706) ALKALINE PHOSPHATASE (BEAKER) (test 65 U/L 30-115 code = 346) AST (SGOT) (BEAKER) (test code = 28 U/L 5-40 353) ALT (SGPT) (BEAKER) (test code = 31 U/L 5-50 347) Campground Cleaning Attendant ID - LITOOperator ID - LITOOperator ID - LITOOperator ID - LITOOperator ID - LITOOperator ID - LITOOperator ID - [id number] 04:49:45 Test Item Value Reference Range Interpretation Comments MAGNESIUM (BEAKER) (test code = 2.8 mg/dL 1.5-3.0 627) Campground Cleaning Attendant ID - LITOOperator ID - LITOOperator ID - LITOOperator ID - CHI [id number] 04:46:46 Test Item Value Reference Range Interpretation Comments PHOSPHORUS (BEAKER) (test code = 4.8 mg/dL 2.5-4.5 H 604) Campground Cleaning Attendant ID - LITOPOCT-GLUCOSE [id number] 04:11:36 Test Item Value Reference Range Interpretation Comments POC-GLUCOSE METER 156 mg/dL 70-110 H : TESTED A T [facility] [address] (BEAKER) (test code [address], = 1538) [facility] [place] [address]: Campground Cleaning Attendant/Techni calista ID = [id number] for Benji Gutierrez RAD, ABDOMEN/KUB 1 VIEW [id number] 04:02:00Reason for exam:->NG tube [facility] : 1950 Sex: MFINAL REPORT CLINICAL HISTORY: NG tube placement COMPARISON: None. FINDINGS: A single supine image of a portion of the abdomen is submitted. The tip of an enteric tube overlies the left upper quadrant in the expected position of the stomach. The abdominal bowel gas pattern is nonspecific as it is largely gasless. There is amorphous calcification overlying the right upper quadrant, nonspecific but possibly cholelithiasis. There is no acute osseous abnormality. Signed: Franky Archer Verified Date/Time: 01/22/2022 04:02:40 RAD, CHEST, 1 VIEW, NON [id number] 03:57:00Reason for exam:->AHRFShould this be performed at the bedside?->Yes [facility]ENTERName: INES NAZARIO : 1950 Sex: MFINAL REPORT RAD, CHEST, 1 VIEW, NON DEPT INDICATION: AHRF COMPARISON: None FINDINGS: Portable frontal view of the chest. IMPRESSION: Support Lines: The endotracheal tube terminates 7.9 cm cephalad to the drea at the level of the clavicles. Enteric tube terminates within the gastric fundus and the sidehole is at the level of the gastroesophageal junction. Lungs and pleura: Small right pleural effusion and right basilar hazy airspace opacities suspicious for pneumoniaNo pneumothorax. Heart and mediastinum: Stable contours. Additional findings: None. Signed: [facility] Conklin [facility] Verified Date/Time: 01/22/2022 03:57:41 BLOOD GAS, [id number] 03:54:11 Test Item Value Reference Range Interpretation Comments PH ARTERIAL (BEAKER) (test code = 7.38 7.35-7.45 383) PCO2 ARTERIAL (BEAKER) (test code 40 mm Hg 35-45 = 384) PO2 ARTERIAL (BEAKER) (test code 336 mm Hg 80-90 H = 385) O2 SATURATION ARTERIAL (BEAKER) 99.7 % 96.0-97.0 H (test code = 386) HCO3 ARTERIAL (BEAKER) (test code 23 mmol/L 21-29 = 388) BASE EXCESS ARTERIAL (BEAKER) -1.8 mmol/L -2.0-3.0 (test code = 387) PATIENT TEMPERATURE (BEAKER) 37.0 (test code = 1818) FIO2 (BEAKER) (test code = 1819) 75.0
== END 2022-03-15 18:09 | disposition home or self-care (01) | DRG 191 ==
LOC: ER 17:30 → ERHOLD 19:18 → 2ND 21:35
PROVIDERS: ADMIT Internal Medicine; ATTEND Internal Medicine
DX: J44.1 Chronic obstructive pulmonary disease with (acute) exacerbation (principal); I13.0 Hypertensive heart and chronic kidney disease with heart failure and stage 1 through stage 4 chronic kidney disease, or unspecified chronic kidney disease; I50.22 Chronic systolic (congestive) heart failure; N18.32 Chronic kidney disease, stage 3b; Z95.5 Presence of coronary angioplasty implant and graft; F17.210 Nicotine dependence, cigarettes, uncomplicated; Z20.822 Contact with and (suspected) exposure to COVID-19
CPT/HCPCS: 36415; 71045; 80048; 80053; 82947; 83880; 84443; 84484; 85025; 93005; 93306; 94640; 94760; 96374; 99285; J2920; J2930; J7799; U0003